=== PATIENT | female | born 1980 | race Caucasian/White ===

== ENCOUNTER 2020-04-16 18:36 | Inpatient (IN) ==
--- NOTE | 2020-04-16 18:38 | Emergency Department Note ---
Impression & Plan Acute renal failure (ARF), Sepsis, Thrombocytopenia, Acute dehydration ED Provider Note NAME: CHRISTOPHER MILLER AGE: 39 SEX: F : 1980 ARRIVES VIA: Ambulance INFORMANT: Patient, ED PROVIDER(S): Jhon Us MD Chief Complaint: Overdose HPI: Patient was seen due to concern for overdose. The patient's mother states that she took an increased amount of her usual Suboxone which per the records note that the patient did fill a 28-day supply on March 26. Unknown as to the total amount. The mother was concerned she had not had improvement in her symptoms and was generally less active than typical and thus EMS was called. The patient reportedly had been somewhat uncooperative at the time. BSG was in the 70s. The patient will intermittently answer questions but occasionally is uncooperative. Patient is not combative at the bedside. Patient denies taking any other medications. History is limited secondary to the intoxication. ROS: Unable to obtain secondary to unwillingness to operate. Past medical history: See below Surgical history: See below Social history: See below Physical Exam: GENERAL: Wearing a mask. NAD, non-toxic. EYE EXAM: Normal conjunctiva. PERRL, no anisocoria and EOM's grossly intact w/o pain. NECK: Supple, no nuchal rigidity, no adenopathy, non-tender. No signs of meningismus. LUNGS: Clear to auscultation. Normal chest wall mechanics. HEART: NSR, no MRG. ABDOMEN: Abdomen soft, non-tender, normo-active bowel sounds, no masses, no rebound or guarding. BACK: No CVA TTP. SKIN: No rashes and small area of bruising over the bilateral anterior knee, no obvious deformity, compartments are soft. 2 areas of nailbed hemorrhage on both index fingers. UPPER EXTREMITIES: Upper extremities are grossly normal. No obvious deformity or TTP elicited on exam. LOWER EXTREMITIES: Grossly normal, no edema. Bruising as noted above with no obvious deformities or leg length discrepancy. Moves bilateral lower extremities without issue. NEURO EXAM: A&O x3, cranial nerves II-XII grossly intact, normal speech, moves all 4 extremities on command w/o issue. Differential diagnoses: Overdose, toxicologic, infection, hypoglycemia, electrolyte abnormalities, cardiac sources, intracerebral event, neurologic, trauma, as well as other pathologies. Course: Patient was seen and evaluated the bedside. Full history physical exam was performed. EKG: Indication: Overdose Sinus tachycardia, rate of 105, normal intervals, normal axis. Imaging Studies: Radiology results as stated below per my review in the radiologist's interpretation: CT head/brain wo con CLINICAL HISTORY: 39 years-old Female with AMS/overdose. Acutely altered mental status with drug overdose TECHNIQUE: Multiple axial CT images of the head were obtained without contrast. A dose lowering technique was utilized adhering to the principles of ALARA. CT DOSE: 647.99 mGy.cm COMPARISON: None. FINDINGS: Motion degraded exam. No acute intracranial hemorrhage, midline shift, intracranial mass, hydrocephalus, territorial ischemia or abnormal extra-axial collection. Prominent perivascular spaces lung the inferior lentiform nuclei/anterior commissure. The calvarium is intact. Minimal mucosal thickening of the left ethmoid air cells. Mastoid air cells are clear. Unremarkable soft tissues. IMPRESSION: Motion degraded exam without acute intracranial abnormality identified. ACT 112: Negative or not required by law. The above report was generated using voice recognition software. It may contain grammatical, syntax or spelling errors. Electronically signed by: Rafat Lombardo M.D. 04/16/2020 7:49 PM Dictated: 04/16/201945 Transcribed: 04/16/201945 ABDOMEN AND PELVIS CT WITHOUT CONTRAST CT DOSE: 608.42 mGy.cm HISTORY: Acute renal failure with overdose. Leukocytosis. WBC 19, ARF TECHNIQUE: Multiaxial CT images of the abdomen and pelvis were performed without contrast. A dose lowering technique was utilized adhering to the principles of ALARA. COMPARISON STUDY: CT abdomen and pelvis 11/25/2007 FINDINGS: Limited exam secondary to positioning. The imaged inferior cardiac chambers are unremarkable. Mild bibasilar groundglass densities. No pneumatosis or pneumoperitoneum. The unenhanced spleen, pancreas and adrenal glands are unremarkable. Mildly contracted gallbladder. Unremarkable liver. Punctate nonobstructing bilateral nephrolithiasis with 3 mm nonobstructing calculus of the inferior pole right kidney. There is a linear 5 mm calcification within the right hemipelvis within the region of the right ureterovesicular junction. Bilateral pelvic basin phlebolith are also noted. No hydronephrosis or hydroureter. Unremarkable urinary bladder and uterus. Tubo-ovarian occlusion devices are noted. Cystic structure of the right adnexum measuring 3.2 cm suggests cyst. No aortic aneurysm or adenopathy. Mild distal esophageal wall thickening with tiny hiatal hernia. There is no bowel obstruction or bowel wall thickening. Noninflamed appendix measures the upper limits of normal at 6 mm, stable from comparison. Unremarkable soft tissues. Bones appear intact. T8 and T9 compression deformities are likely chronic. IMPRESSION: 1. Bilateral nonobstructing nephrolithiasis. There is a linear 5 mm calcification within the right hemipelvis near the ureterovesicular junction which is suggestive of a calculus within the distal ureter. A phlebolith could appear similarly. No associated obstructive uropathy. Correlate with urinalysis. 2. No bowel obstruction or bowel wall thickening. 3. Bibasilar groundglass densities suggest atelectasis versus pneumonitis. 4. 3.2 cm right ovarian cyst. 5. Additional findings as above. ACT 112: Negative or not required by law. The above report was generated using voice recognition software. It may contain grammatical, syntax or spelling errors. Electronically signed by: Rafat Lombardo M.D. 04/16/2020 8:17 PM Dictated: 04/16/202008 Transcribed: 04/16/202008 XR chest 1V portable HISTORY: 39 years-old Female overdose acute drug overdose COMPARISON: Chest radiograph 03/17/2020 TECHNIQUE: Portable AP view of the chest FINDINGS: Cardiomediastinal and hilar silhouettes are within normal limits. No pneumothorax, pleural effusion, airspace consolidation or overt pulmonary edema. Bones of the chest appear grossly intact. IMPRESSION: No acute process. ACT 112: Negative or not required by law. The above report was generated using voice recognition software. It may contain grammatical, syntax or spelling errors. Electronically signed by: Rafat Lombardo M.D. 04/16/2020 8:00 PM Dictated: 04/16/201958Transcribed: 04/16/201958 Cardiac monitoring: An order was placed for continuous cardiac monitoring. The monitor shows a rate of 115 with sinus tachycardia rhythm. MDM: Patient did present with a possible overdose. Blood work was obtained along with a urine drug and tox screen. EKG was obtained the patient was given IV fluids. CT the head is motion degraded but no obvious abnormality. The patient did have a white count of 19 with a hemoglobin of 11. Patient's bicarb is slightly low with acute renal failure but potassium is normal. Patient does have transaminitis. TSH is elevated with normal free T4. The patient salicylate Tylenol and alcohol is negative. CK was added. The patient was ordered calcium given the low calcium and the patient was given IV fluids given the acute renal failure. Chest x-ray is clear. The patient reportedly needed to recollect with a CBC and there is concerned that the patient did have bacteria in her blood sample. Empiric antibiotics were ordered in addition to blood cultures. I did speak with the patient's fa ther who stated that she is seeing very fatigued and that this was the case when he last saw her on Wednesday he stated that she is a recovering recovering drug addict but has not known whether not she has taken something inappropriately or any and illicit substances. He did state that the patient does live with the patient's mother. CT the abdomen pelvis does show nonobstructing stones. Have calcification at the right UVJ. No obstructive uropathy noted. There is no bowel wall thickening. Patient may have some pneumonitis. Right ovarian cyst noted. I did speak with the on-call hospitalist and the patient was admitted to the medicine service. Did convey to the medicine service unsure as to whether or not the patient's nailbed hemorrhages were splinter hemorrhages versus trauma versus IV drug abuse. The patient does not have obvious murmur on exam but given the patient's prior history did state that there is a possibility for endocarditis. White count was 18 with a hemoglobin of 11. Platelet count is 88. Patient salicylate Tylenol and alcohol negative. Covid negative. The p atient's urinalysis does show positive nitrites and leuks. Rest the urine was still pending at the time of the patient had gone upstairs. I did consider septic pyelo however there is no obvious inflammatory kidney change and no signs of obstructive uropathy concerning for obstructing stone. Patient was covered with broad-spectrum antibiotics. Past Med/Surg History Medical History DVT (deep vein thrombosis) in Hypertension Hypothyroidism (acquired) Surgical History History of tubal ligation Social History Smoking Status: Never smoker Tobacco Type: Cigarettes Preferred Language: Uzbek Feels Safe at Home: Yes Allergies Allergies Allergy/AdvReac Type Severity Reaction Status Date / Time No Known Allergies Allergy Unknown Verified 03/17/20 12:54 Home Meds Home Medications Medication Instructions Recorded Confirmed gabapentin 1,200 mg PO BID 03/17/20 03/17/20 levothyroxine 88 mcg PO QAM 03/17/20 03/17/20 lisinopril 40 mg PO QAM 03/17/20 03/17/20 topiramate 0 mg PO BID 03/17/20 03/17/20 trazodone 100 mg PO HS 03/17/20 03/17/20 Previous Rx's Medication Instructions Recorded naloxone [Narcan] 1 spray INTRANASAL ONCE #2 ea 03/17/20 Results & Data (ED) Vital Signs Vital Signs - 24 hr 04/16/20 18:50 04/16/20 19:56 Temperature 36.3 C L Temperature Source Oral Pulse Rate 120 H Pulse Rate [Right Finger] 99 H Respiratory Rate 18 16 Respiratory Effort / Characteristics Non-Labored Respiratory Depth Normal Respiratory Pattern Regular Blood Pressure 95/42 L Blood Pressure [Right Arm] 88/53 L Blood Pressure Mean 59 Blood Pressure Mean [Right Arm] 64 Pulse Oximetry 100 96 Oxygen Delivery Method Room Air Room Air Sepsis Recent Fever Within 48 Hours No Sepsis New/Unexplained Change in Mental Status N/A Sepsis Action Taken by Nursing No Action Required Home Medications Current Medication List: was personally reviewed by me Laboratory Data Attestation: I reviewed the patient's lab results. Result diagrams: 04/16/20 20:54 04/16/20 20:54 Lab Results 04/16/20 04/16/20 04/16/20 Range/Units 18:47 18:47 18:47 WBC Cancelled RBC Cancelled Hgb Cancelled Hct Cancelled MCV Cancelled MCH Cancelled MCHC Cancelled RDW Std Deviation Cancelled RDW Coeff of Lesly Cancelled Plt Count Cancelled MPV Cancelled Immature Gran % (Auto) Cancelled Neut % (Auto) Cancelled Lymph % (Auto) Cancelled Placer % (Auto) Cancelled Eos % (Auto) Cancelled Baso % (Auto) Cancelled Neut # (Auto) Cancelled Lymph # (Auto) Cancelled Placer # (Auto) Cancelled Eos # (Auto) Cancelled Baso # (Auto) Cancelled Immature Gran # (Auto) Cancelled Absolute Nucleated RBC Cancelled Nucleated RBC % (auto) Cancelled Neutrophils % (Manual) Cancelled Band Neutrophils % Cancelled Lymphocytes % (Manual) Cancelled Prolymphocyte % Cancelled Reactive Lymphs % (Man) Cancelled Monocytes % (Manual) Cancelled Eosinophils % (Manual) Cancelled Basophils % (Manual) Cancelled Metamyelocytes % (Man) Cancelled Myelocytes % (Man) Cancelled Promyelocytes % (Man) Cancelled Blast Cells % (Manual) Cancelled Plasma Cell % (Manual) Cancelled Other Cells % Cancelled Nucleated RBC % Cancelled Neutrophils # (Manual) Cancelled Band Neutrophils # Cancelled Total Absolute Neuts Cancelled Lymphocytes # (Manual) Cancelled Prolymphocyte # Cancelled Reactive Lymphs # Cancelled Total Abs Lymphocytes Cancelled Monocytes # (Manual) Cancelled Eosinophils # (Manual) Cancelled Basophils # (Manual) Cancelled Metamyelocytes # (Man) Cancelled Myelocytes # (Manual) Cancelled Promyelocytes # (Man) Cancelled Blast Cells # (Man) Cancelled Plasma Cell # (Manual) Cancelled Other Cells # Cancelled Nucleated RBCs # (Man) Cancelled Hypersegmented Neuts Cancelled Hyposegmented Neuts Cancelled Hypogranular Neuts Cancelled Large Granular Lymphs Cancelled # Lrg Granular Lymphs Cancelled Hairy Cells Cancelled Smudge Cells Cancelled Toxic Granulation Cancelled Toxic Vacuolation Cancelled Dohle Bodies Cancelled [place] Rods Cancelled Platelet Estimate Cancelled Hypogranular Platelets Cancelled Clumped Platelets Cancelled Giant Platelets Cancelled Platelet Satelliting Cancelled RBC Morphology Cancelled Polychromasia Cancelled Hypochromasia Cancelled Poikilocytosis Cancelled Basophilic Stippling Cancelled Anisocytosis Cancelled Microcytosis Cancelled Macrocytosis Cancelled Spherocytes Cancelled Pappenheimer Bodies Cancelled Sickle Cells Cancelled Target Cells Cancelled Tear Drop Cells Cancelled Ovalocytes Cancelled Stomatocytes Cancelled [place] Bodies Cancelled Echinocytes Cancelled Acanthocytes (Spur) Cancelled Rouleaux Cancelled RBC Agglutinates Cancelled Schistocytes Cancelled RBC Morph Comment Cancelled Sezary Cell Cancelled Sodium 138 (136-145) mmol/L Potassium 3.8 (3.5-5.1) mmol/L Chloride 108 H (98-107) mmol/L Carbon Dioxide 19 L (21-32) mmol/L Anion Gap 11.0 (3-11) BUN 87 H (7-18) mg/dl Creatinine 4.90 H* (0.6-1.2) mg/dl Est Cr Clr Drug Dosing 16.9 ml/min Est GFR ( Amer) 12.1 Est GFR (Non-Af Amer) 10.5 BUN/Creatinine Ratio 17.7 (10-20) Glucose 71 (70-99) mg/dl Lactate (0.4-2.0) mmol/L Calcium 7.5 L (8.5-10.1) mg/dl Magnesium 1.9 (1.8-2.4) mg/dl Total Bilirubin 1.1 H (0.2-1) mg/dl AST 96 H (15-37) U/L ALT 150 H (12-78) U/L Alkaline Phosphatase 137 H (45-117) U/L Total Creatine Kinase 563 H (26-192) U/L Total Protein 5.4 L (6.4-8.2) gm/dl Albumin 2.4 L (3.4-5.0) gm/dl Globulin 3.0 (2.5-4.0) gm/dl Albumin/Globulin Ratio 0.8 L (0.9-2) TSH 16.800 H (0.300-4.500) uIu/ml Free T4 1.21 (0.8-1.6) ng/dl HCG, Qual (Negative) Salicylates < 1.7 L (2.8-20) mg/dl Acetaminophen 2 L (10-30) ug/ml Ethyl Alcohol mg/dL (0-3) mg/dl COVID-19 Eval Order SARS-CoV-2, RNA, NAAT (NEGATIVE) 04/16/20 04/16/20 04/16/20 Range/Units 18:47 18:58 19:52 WBC RBC Hgb Hct MCV MCH MCHC RDW Std Deviation RDW Coeff of Lesly Plt Count MPV Immature Gran % (Auto) Neut % (Auto) Lymph % (Auto) Placer % (Auto) Eos % (Auto) Baso % (Auto) Neut # (Auto) Lymph # (Auto) Placer # (Auto) Eos # (Auto) Baso # (Auto) Immature Gran # (Auto) Absolute Nucleated RBC Nucleated RBC % (auto) Neutrophils % (Manual) Band Neutrophils % Lymphocytes % (Manual) Prolymphocyte % Reactive Lymphs % (Man) Monocytes % (Manual) Eosinophils % (Manual) Basophils % (Manual) Metamyelocytes % (Man) Myelocytes % (Man) Promyelocytes % (Man) Blast Cells % (Manual) Plasma Cell % (Manual) Other Cells % Nucleated RBC % Neutrophils # (Manual) Band Neutrophils # Total Absolute Neuts Lymphocytes # (Manual) Prolymphocyte # Reactive Lymphs # Total Abs Lymphocytes Monocytes # (Manual) Eosinophils # (Manual) Basophils # (Manual) Metamyelocytes # (Man) Myelocytes # (Manual) Promyelocytes # (Man) Blast Cells # (Man) Plasma Cell # (Manual) Other Cells # Nucleated RBCs # (Man) Hypersegmented Neuts Hyposegmented Neuts Hypogranular Neuts Large Granular Lymphs # Lrg Granular Lymphs Hairy Cells Smudge Cells Toxic Granulation Toxic Vacuolation Dohle Bodies [place] Platelet Estimate Hypogranular Platelets Clumped Platelets Giant Platelets Platelet Satelliting RBC Morphology Polychromasia Hypochromasia Poikilocytosis Basophilic Stippling Anisocytosis Microcytosis Macrocytosis Spherocytes Pappenheimer Bodies Sickle Cells Target Cells Tear Drop Cells Ovalocytes Stomatocytes [place] Bodies Echinocytes Acanthocytes (Spur) Rouleaux RBC Agglutinates Schistocytes RBC Morph Comment Sezary Cell Sodium (136-145) mmol/L Potassium (3.5-5.1) mmol/L Chloride (98-107) mmol/L Carbon Dioxide (21-32) mmol/L Anion Gap (3-11) BUN (7-18) mg/dl Creatinine (0.6-1.2) mg/dl Est Cr Clr Drug Dosing ml/min Est GFR ( Amer) Est GFR (Non-Af Amer) BUN/Creatinine Ratio (10-20) Glucose (70-99) mg/dl Lactate 2.5 H* (0.4-2.0) mmol/L Calcium (8.5-10.1) mg/dl Magnesium (1.8-2.4) mg/dl Total Bilirubin (0.2-1) mg/dl AST (15-37) U/L ALT (12-78) U/L Alkaline Phosphatase (45-117) U/L Total Creatine Kinase (26-192) U/L Total Protein (6.4-8.2) gm/dl Albumin (3.4-5.0) gm/dl Globulin (2.5-4.0) gm/dl Albumin/Globulin Ratio (0.9-2) TSH (0.300-4.500) uIu/ml Free T4 (0.8-1.6) ng/dl HCG, Qual Negative (Negative) Salicylates (2.8-20) mg/dl Acetaminophen (10-30) ug/ml Ethyl Alcohol mg/dL < 3.0 (0-3) mg/dl COVID-19 Eval Order SARS-CoV-2, RNA, NAAT (NEGATIVE) 04/16/20 04/16/20 04/16/20 Range/Units 20:09 20:09 20:54 WBC 18.13 H RBC 3.76 L Hgb 11.0 L Hct 32.0 L MCV 85.1 MCH 29.3 MCHC 34.4 RDW Std Deviation 46.9 H RDW Coeff of Lesly 14.9 H Plt Count 88 L MPV 11.5 H Immature Gran % (Auto) 0.3 Neut % (Auto) 89.9 Lymph % (Auto) 7.6 Placer % (Auto) 1.9 Eos % (Auto) 0.2 Baso % (Auto) 0.1 Neut # (Auto) 16.30 H Lymph # (Auto) 1.37 Placer # (Auto) 0.34 Eos # (Auto) 0.04 Baso # (Auto) 0.02 Immature Gran # (Auto) 0.06 H Absolute Nucleated RBC 0.00 Nucleated RBC % (auto) 0.0 Neutrophils % (Manual) Band Neutrophils % Lymphocytes % (Manual) Prolymphocyte % Reactive Lymphs % (Man) Monocytes % (Manual) Eosinophils % (Manual) Basophils % (Manual) Metamyelocytes % (Man) Myelocytes % (Man) Promyelocytes % (Man) Blast Cells % (Manual) Plasma Cell % (Manual) Other Cells % Nucleated RBC % Neutrophils # (Manual) Band Neutrophils # Total Absolute Neuts Lymphocytes # (Manual) Prolymphocyte # Reactive Lymphs # Total Abs Lymphocytes Monocytes # (Manual) Eosinophils # (Manual) Basophils # (Manual) Metamyelocytes # (Man) Myelocytes # (Manual) Promyelocytes # (Man) Blast Cells # (Man) Plasma Cell # (Manual) Other Cells # Nucleated RBCs # (Man) Hypersegmented Neuts Hyposegmented Neuts Hypogranular Neuts Large Granular Lymphs # Lrg Granular Lymphs Hairy Cells Smudge Cells Toxic Granulation Toxic Vacuolation Dohle Bodies [place] Platelet Estimate Decreased L Hypogranular Platelets Clumped Platelets Giant Platelets Platelet Satelliting RBC Morphology Polychromasia 1+ Hypochromasia Poikilocytosis Basophilic Stippling Anisocytosis Microcytosis Macrocytosis Spherocytes Pappenheimer Bodies Sickle Cells Target Cells Tear Drop Cells Ovalocytes Stomatocytes [place] Bodies Echinocytes 1+ Acanthocytes (Spur) Rouleaux RBC Agglutinates Schistocytes RBC Morph Comment Sezary Cell Sodium (136-145) mmol/L Potassium (3.5-5.1) mmol/L Chloride (98-107) mmol/L Carbon Dioxide (21-32) mmol/L Anion Gap (3-11) BUN (7-18) mg/dl Creatinine (0.6-1.2) mg/dl Est Cr Clr Drug Dosing ml/min Est GFR ( Amer) Est GFR (Non-Af Amer) BUN/Creatinine Ratio (10-20) Glucose (70-99) mg/dl Lactate (0.4-2.0) mmol/L Calcium (8.5-10.1) mg/dl Magnesium (1.8-2.4) mg/dl Total Bilirubin (0.2-1) mg/dl AST (15-37) U/L ALT (12-78) U/L Alkaline Phosphatase (45-117) U/L Total Creatine Kinase (26-192) U/L Total Protein (6.4-8.2) gm/dl Albumin (3.4-5.0) gm/dl Globulin (2.5-4.0) gm/dl Albumin/Globulin Ratio (0.9-2) TSH (0.300-4.500) uIu/ml Free T4 (0.8-1.6) ng/dl HCG, Qual (Negative) Salicylates (2.8-20) mg/dl Acetaminophen (10-30) ug/ml Ethyl Alcohol mg/dL (0-3) mg/dl COVID-19 Eval [facility] SARS-CoV-2, RNA, NAAT NEGATIVE (NEGATIVE) 04/16/20 Range/Units 20:54 WBC RBC Hgb Hct MCV MCH MCHC RDW Std Deviation RDW Coeff of Lesly Plt Count MPV Immature Gran % (Auto) Neut % (Auto) Lymph % (Auto) Placer % (Auto) Eos % (Auto) Baso % (Auto) Neut # (Auto) Lymph # (Auto) Placer # (Auto) Eos # (Auto) Baso # (Auto) Immature Gran # (Auto) Absolute Nucleated RBC Nucleated RBC % (auto) Neutrophils % (Manual) Band Neutrophils % Lymphocytes % (Manual) Prolymphocyte % Reactive Lymphs % (Man) Monocytes % (Manual) Eosinophils % (Manual) Basophils % (Manual) Metamyelocytes % (Man) Myelocytes % (Man) Promyelocytes % (Man) Blast Cells % (Manual) Plasma Cell % (Manual) Other Cells % Nucleated RBC % Neutrophils # (Manual) Band Neutrophils # Total Absolute Neuts Lymphocytes # (Manual) Prolymphocyte # Reactive Lymphs # Total Abs Lymphocytes Monocytes # (Manual) Eosinophils # (Manual) Basophils # (Manual) Metamyelocytes # (Man) Myelocytes # (Manual) Promyelocytes # (Man) Blast Cells # (Man) Plasma Cell # (Manual) Other Cells # Nucleated RBCs # (Man) Hypersegmented Neuts Hyposegmented Neuts Hypogranular Neuts Large Granular Lymphs # Lrg Granular Lymphs Hairy Cells Smudge Cells Toxic Granulation Toxic Vacuolation Dohle Bodies [place] Platelet Estimate Hypogranular Platelets Clumped Platelets Giant Platelets Platelet Satelliting RBC Morphology Polychromasia Hypochromasia Poikilocytosis Basophilic Stippling Anisocytosis Microcytosis Macrocytosis Spherocytes Pappenheimer Bodies Sickle Cells Target Cells Tear Drop Cells Ovalocytes Stomatocytes [place] Bodies Echinocytes Acanthocytes (Spur) Rouleaux RBC Agglutinates Schistocytes RBC Morph Comment Sezary Cell Sodium 140 (136-145) mmol/L Potassium 3.8 (3.5-5.1) mmol/L Chloride 110 H (98-107) mmol/L Carbon Dioxide 20 L (21-32) mmol/L Anion Gap 10.0 (3-11) BUN 84 H (7-18) mg/dl Creatinine 4.64 H* (0.6-1.2) mg/dl Est Cr Clr Drug Dosing 17.9 ml/min Est GFR ( Amer) 12.9 Est GFR (Non-Af Amer) 11.2 BUN/Creatinine Ratio 18.0 (10-20) Glucose 59 L (70-99) mg/dl Lactate (0.4-2.0) mmol/L Calcium 7.7 L (8.5-10.1) mg/dl Magnesium (1.8-2.4) mg/dl Total Bilirubin (0.2-1) mg/dl AST (15-37) U/L ALT (12-78) U/L Alkaline Phosphatase (45-117) U/L Total Creatine Kinase 533 H (26-192) U/L Total Protein (6.4-8.2) gm/dl Albumin (3.4-5.0) gm/dl Globulin (2.5-4.0) gm/dl Albumin/Globulin Ratio (0.9-2) TSH (0.300-4.500) uIu/ml Free T4 (0.8-1.6) ng/dl HCG, Qual (Negative) Salicylates (2.8-20) mg/dl Acetaminophen (10-30) ug/ml Ethyl Alcohol mg/dL (0-3) mg/dl COVID-19 Eval Order SARS-CoV-2, RNA, NAAT (NEGATIVE) Administered Medications Discontinued Medications Calcium Gluconate (Calcium Gluconate 10% 10 Ml Vial) 2,000 mg IV NOW STA Stop: 04/16/20 19:36 Last Admin: 04/16/20 19:57 Dose: 2,000 mg Documented by: [id number] Sodium Chloride (Nss 1000ml) 1,000 mls @ 999 mls/hr IV .Q1H1M RICK Stop: 04/16/20 20:00 Last Infusion: 04/16/20 19:59 Dose: 0 mls/hr Documented by: [id number] Admin: 04/16/20 19:07 Dose: 999 mls/hr Documented by: [id number] Lorazepam (Ativan) 0.5 mg in 1 mls @ 0.5 mls/min IV UD PRN PRN Reason: Agitation Stop: 05/16/20 18:49 Last Admin: 04/16/20 21:14 Dose: 0.5 mls/min Documented by: [id number] Admin: 04/16/20 20:27 Dose: 0.5 mls/min Documented by: [id number] Admin: 04/16/20 19:59 Dose: 0.5 mls/min Documented by: [id number] Admin: 04/16/20 19:07 Dose: 0.5 mls/min Documented by: [id number] Sodium Chloride (Nss 1000ml) 1,000 mls @ 999 mls/hr IV .Q1H1M ONE Stop: 04/16/20 20:38 Last Infusion: 04/16/20 20:46 Dose: 0 mls/hr Documented by: [id number] Admin: 04/16/20 19:58 Dose: 999 mls/hr Documented by: [id number] Calcium Gluconate 2,000 mg/ (Sodium Chloride) 70 mls @ 280 mls/hr IV NOW ONE Stop: 04/16/20 20:14 Last Admin: 04/16/20 19:59 Dose: Not Given Documented by: [id number] Piperacillin Sod/Tazobactam Sod (Zosyn) 4.5 gm in 120 mls @ 240 mls/hr IV NOW ONE Stop: 04/16/20 20:40 Last Admin: 04/16/20 22:15 Dose: 240 mls/hr Documented by: [id number] Discharge Plan Visit Data Chief Complaint: Altered Mental Status Stated Complaint: ALTERED MENTAL STATUS/POSSIBLE OVERDOSE ED Provider: Jhon Us Discharge Problem: Acute renal failure (ARF), Sepsis, Thrombocytopenia, Acute dehydration Discharge Instructions Interventions: ED Discharge Assessment Last Done: 04/16/20 22:15 Discharge Problem: Acute renal failure (ARF) Qualifiers: Acute renal failure type: unspecified Qualified Code(s): N17.9 - Acute kidney failure, unspecified Sepsis Qualifiers: Sepsis type: sepsis due to unspecified organism Sepsis acute organ dysfunction status: unspecified Qualified Code(s): A41.9 - Sepsis, unspecified organism
[2020-04-16] MEDS ORDERED: SODIUM CHLORIDE 0.9% 1000ML 1,000 ML IV SCH (19:00)
[2020-04-16] MEDS: LORazepam 0.5 MG/1 ML VIAL IV PRN ×4 (19:07→21:14)
[2020-04-16 19:20] LABS: Pregnancy Test, Serum Negative (Negative)
[2020-04-16 19:24] LABS: Acetaminophen 2 ug/ml (10-30); Salicylate < 1.7 mg/dl (2.8-20)
[2020-04-16 19:31] LABS: Albumin Globulin Ratio 0.8 (0.9-2); Albumin Level 2.4 gm/dl (3.4-5.0); BUN Creatinine Ratio 17.7 (10-20); Bilirubin,Total 1.1 mg/dl (0.2-1); Calcium 7.5 mg/dl (8.5-10.1); Creatinine Clr Calc Pharmacy 16.9 ml/min; Est GFR (African American) 12.1; Est GFR (Non-African American) 10.5; Magnesium 1.9 mg/dl (1.8-2.4); Potassium 3.8 mmol/L (3.5-5.1); Thyroid Stimulating Hormone 16.8 uIu/ml (0.300-4.500); Total Protein 5.4 gm/dl (6.4-8.2)
[2020-04-16] MEDS ORDERED: CALCIUM GLUCONATE 10% 10 ML VIAL IV STA (19:35)
[2020-04-16] MEDS ORDERED: SODIUM CHLORIDE 0.9% 1000ML 1,000 ML IV ONE (19:38)
--- NOTE | 2020-04-16 19:50 | CT Scan Report ---
CT head/brain wo con CLINICAL HISTORY: 39 years-old Female with AMS/overdose. Acutely altered mental status with drug ove rdose TECHNIQUE: Multiple axial CT images of the head were obtained without contrast. A dose lowering tech nique was utilized adhering to the principles of ALARA. CT DOSE: 647.99 mGy.cm COMPARISON: None. FINDINGS: Motion degraded exam. No acute intracranial hemorrhage, midline shift, intracranial mass, hydrocephal us, territorial ischemia or abnormal extra-axial collection. Prominent perivascular spaces lung the i nferior lentiform nuclei/anterior commissure. The calvarium is intact. Minimal mucosal thickening of the left ethmoid air cells. Mastoid air cells are clear. Unremarkable soft tissues. IMPRESSION: Motion degraded exam without acute intracranial abnormality identified. ACT 112: Negative or not required by law. The above report was generated using voice recognition software. It may contain grammatical, syntax o r spelling errors. Electronically signed by: Rafat Lombardo M.D. 04/16/2020 7:49 PM
[2020-04-16 19:51] LABS: T4 Free Thyroxine 1.21 ng/dl (0.8-1.6)
[2020-04-16] MEDS ORDERED: CALCIUM GLUCONATE 10% 2,000 MG in SODIUM CHLORIDE 0.9% 50 ML IV ONE (20:00)
--- NOTE | 2020-04-16 20:01 | XRay Report ---
XR chest 1V portable HISTORY: 39 years-old Female overdose acute drug overdose COMPARISON: Chest radiograph 03/17/2020 TECHNIQUE: Portable AP view of the chest FINDINGS: Cardiomediastinal and hilar silhouettes are within normal limits. No pneumothorax, pleural effusion, airspace consolidation or overt pulmonary edema. Bones of the chest appear grossly intact. IMPRESSION: No acute process. ACT 112: Negative or not required by law. The above report was generated using voice recognition software. It may contain grammatical, syntax o r spelling errors. Electronically signed by: Rafat Lombardo M.D. 04/16/2020 8:00 PM
[2020-04-16] MEDS ORDERED: PIPERACILL/TAZOBAC CONSULT ACTIVE PRN ×2 (20:11→22:38)
[2020-04-16] MEDS ORDERED: VANCOMYCIN HCL 2,000 MG in SODIUM CHLORIDE 0.9% 500 ML IV ONE (20:11)
[2020-04-16] MEDS ORDERED: VANCOMYCIN CONSULT ACTIVE PRN (20:11)
[2020-04-16] MEDS ORDERED: PIPERACILLIN/TAZOBACTAM 4.5 GM/120 ML BAG IV ONE (20:11)
--- NOTE | 2020-04-16 20:19 | CT Scan Report ---
ABDOMEN AND PELVIS CT WITHOUT CONTRAST CT DOSE: 608.42 mGy.cm HISTORY: Acute renal failure with overdose. Leukocytosis. WBC 19, ARF TECHNIQUE: Multiaxial CT images of the abdomen and pelvis were performed without contrast. A dose lo wering technique was utilized adhering to the principles of ALARA. COMPARISON STUDY: CT abdomen and pelvis 11/25/2007 FINDINGS: Limited exam secondary to positioning. The imaged inferior cardiac chambers are unremarkable. Mild bibasilar groundglass densities. No pneum atosis or pneumoperitoneum. The unenhanced spleen, pancreas and adrenal glands are unremarkable. Mild ly contracted gallbladder. Unremarkable liver. Punctate nonobstructing bilateral nephrolithiasis with 3 mm nonobstructing calculus of the inferior p ole right kidney. There is a linear 5 mm calcification within the right hemipelvis within the region of the right ureterovesicular junction. Bilateral pelvic basin phlebolith are also noted. No hydronep hrosis or hydroureter. Unremarkable urinary bladder and uterus. Tubo-ovarian occlusion devices are no cristy. Cystic structure of the right adnexum measuring 3.2 cm suggests cyst. No aortic aneurysm or nir opathy. Mild distal esophageal wall thickening with tiny hiatal hernia. There is no bowel obstruction or ирина l wall thickening. Noninflamed appendix measures the upper limits of normal at 6 mm, stable from comp arison. Unremarkable soft tissues. Bones appear intact. T8 and T9 compression deformities are likely chronic. IMPRESSION: 1. Bilateral nonobstructing nephrolithiasis. There is a linear 5 mm calcification within the right he mipelvis near the ureterovesicular junction which is suggestive of a calculus within the distal urete r. A phlebolith could appear similarly. No associated obstructive uropathy. Correlate with urinalysis . 2. No bowel obstruction or bowel wall thickening. 3. Bibasilar groundglass densities suggest atelectasis versus pneumonitis. 4. 3.2 cm right ovarian cyst. 5. Additional findings as above. ACT 112: Negative or not required by law. The above report was generated using voice recognition software. It may contain grammatical, syntax o r spelling errors. Electronically signed by: Rafat Lombardo M.D. 04/16/2020 8:17 PM
[2020-04-16 21:07] LABS: Mean Corpuscular Hemoglobin 29.3 pg (25-34); Mean Corpuscular Hgb Conc 34.4 g/dL (32-36); Mean Corpuscular Volume 85.1 fL (80-100); RDW Coefficient of Variation 14.9 % (11.5-14.5); RDW Standard Deviation 46.9 fL (36.4-46.3); Red Blood Count 3.76 M/uL (4.2-5.4); White Blood Count 18.13 K/uL (4.8-10.8)
[2020-04-16 21:35] LABS: Calcium 7.7 mg/dl (8.5-10.1); Creatinine Clr Calc Pharmacy 17.9 ml/min; Est GFR (African American) 12.9; Est GFR (Non-African American) 11.2; Potassium 3.8 mmol/L (3.5-5.1)
[2020-04-16 21:42] LABS: Mean Platelet Volume 11.5 fL (7.4-10.4); Platelet Count 88 K/uL (130-400)
--- NOTE | 2020-04-16 21:42 | History & Physical Report ---
Date of Service April 16, 2020 Assessment & Plan (1) Encephalopathy acute: Patient with history of IV drug abuse and Suboxone for home use. Patient arrived via EMS ? combative - Will continue with supportive care and hydration at this time, while the remaining urine toxicology is pending - Patient has no gap - TSH is elevated with normal T4 - CT head negative for acute process - Broad spectrum antibiotics for concern for sepsis unknown source - Frequent neurological checks - Clear mentation and psych consult (2) Sepsis: Unknown source, cover broad spectrum to include atypical and endocarditis - Leukocytosis with NLR 10:1, thrombocytopenic - metabolic acidosis with lactate and estefany - wean down coverage as able - blood cultures pending - urine culture and toxicology pending (3) Elevated CK: CK 533 reported as not being up and active as usual per family report to ED - suspect ed from comatose state as above - resuscitate with crystalloid to maintain adequate UO - follow with next blood draw (4) ESTEFANY (acute kidney injury): Non obstructive stone ntoed on CT of abdomen - Stage III ESTEFANY with CLINICAL COUNSELOR 4 - Continue to resuscitate with crytstalloid - no evidence of hydronephrosis - avoid nephrotoxic medications and limit exposure to nephrotoxic (5) Nephrolithiasis: As above, non obstructive, no abscess - antibiotics and follow with resuscitation (6) Drug abuse and dependence: Pending urine toxicology report. - toxicology consult if needed - (7) Thrombocytopenia: Peripheral smear pending endocarditis versus sepsis of other origin versus vasculitis or clot History of Present Illness Primary Care Provider: NO PCP 39 YOF with history of IV drug use and prescribed narcan as outpatient use. The patient is brought to the ER today by EMS after concern by her mother of taking increase dose of her suboxone ? total amount. Patient was reportedly non-cooperative and disoriented. On evaluation in the ED the patient is disoriented and speech is inappropriate and not accurate. Patient is unaware where she is or how she got here. In the ER patient has received 2liters 0.9% saline, broad spectrum antibiotics, CT scan of head and abdomen, lorazepam and calcium gluconate. Related to pateints mentation and overall ill appearance will admit to telemetry and cover for endocarditis. Allergies Allergy/AdvReac Type Severity Reaction Status Date / Time No Known Allergies Allergy Unknown Verified 03/17/20 12:54 Home Medications Medication Instructions Recorded Confirmed Type gabapentin 1,200 mg PO BID 12/27/20 12/27/20 History levothyroxine 88 mcg PO QAM 03/17/20 03/17/20 History lisinopril 40 mg PO QAM 03/17/20 03/17/20 History naloxone [Narcan] 1 spray INTRANASAL ONCE #2 ea 03/17/20 Rx topiramate 0 mg PO BID 03/17/20 03/17/20 History trazodone 100 mg PO HS 03/17/20 03/17/20 History Past Med/Surg History Medical History DVT (deep vein thrombosis) in Hypertension Hypothyroidism (acquired) Surgical History History of tubal ligation Social History Smoking Status: Unknown if ever smoked Tobacco Type: Cigarettes Hx Substance Use: Yes Preferred Language: Irish Communication Ability: Impaired [facility] Required: No Beliefs That Will Affect Care: None Current Living Situation: Parent Feels Safe at Home: Yes Assistive Devices: None Review of Systems Review of Systems: Review of systems unable to be completed secondary to degree of intoxication or alteration in mentation. Physical Exam Physical Exam: PHYSICAL EXAM: General: Lethargic Head: Normocephalic, atraumatic ENT: PERRL, EOMI, mucous membranes moist Neuro: AAO x 1(person) speech slurred and inappropriate, strength intact bilaterally 5/5, sensation intact, full ROM of neck, unable to perform coordination as patient can't follow commands. Chest: equal rise and fall of the chest, no accessory muscle use, no heaves or thirlls, scattered crackles in bases on auscultation, on room air, Cardiac: Regular rate and rhythm, telelmetry reviewed, skin warm dry, cap refill <3 seconds, peripheral pusles +2 no JVD, no murmur, GI: NABS x 4 quadrants, soft, nontender to palpation, no rebound, guarding or tenderness : Spontaneously voiding, no pain, no CVA tenderness, Extremities: echymostic areas with surrounding areas of purpura to lower extremities, no painful lesions, rubor color to bialteral hands and arms. brusing and swelling noted to lateral left malleolus. Psych: Normal mood and affect cits Skin: no rash or erythema Results & Data Results & Data ([facility]) Vital Signs (Past 12 Hours) Vital Signs Temp Pulse Pulse Resp BP BP Pulse Ox 04/16/20 19:56 99 H 16 88/53 L 96 04/16/20 18:50 36.3 C L 120 H 18 95/42 L 100 Laboratory Results Abnormal lab results 04/16/20 04/16/20 04/16/20 Range/Units 18:47 18:47 19:52 WBC (4.8-10.8) K/uL RBC (4.2-5.4) M/uL Hgb (12.0-16.0) g/dL Hct (37-47) % RDW Std Deviation (36.4-46.3) fL RDW Coeff of Lesly (11.5-14.5) % Plt Count (130-400) K/uL MPV (7.4-10.4) fL Neut # (Auto) (1.4-6.5) K/uL Immature Gran # (Auto) (0.00-0.02) K/uL Platelet Estimate (Normal) Chloride 108 H (98-107) mmol/L Carbon Dioxide 19 L (21-32) mmol/L BUN 87 H (7-18) mg/dl Creatinine 4.90 H* (0.6-1.2) mg/dl Glucose (70-99) mg/dl Lactate 2.5 H* (0.4-2.0) mmol/L Calcium 7.5 L (8.5-10.1) mg/dl Total Bilirubin 1.1 H (0.2-1) mg/dl AST 96 H (15-37) U/L ALT 150 H (12-78) U/L Alkaline Phosphatase 137 H (45-117) U/L Total Creatine Kinase 563 H (26-192) U/L Total Protein 5.4 L (6.4-8.2) gm/dl Albumin 2.4 L (3.4-5.0) gm/dl Albumin/Globulin Ratio 0.8 L (0.9-2) TSH 16.800 H (0.300-4.500) uIu/ml Salicylates < 1.7 L (2.8-20) mg/dl Acetaminophen 2 L (10-30) ug/ml 04/16/20 04/16/20 Range/Units 20:54 20:54 WBC 18.13 H (4.8-10.8) K/uL RBC 3.76 L (4.2-5.4) M/uL Hgb 11.0 L (12.0-16.0) g/dL Hct 32.0 L (37-47) % RDW Std Deviation 46.9 H (36.4-46.3) fL RDW Coeff of Lesly 14.9 H (11.5-14.5) % Plt Count 88 L (130-400) K/uL MPV 11.5 H (7.4-10.4) fL Neut # (Auto) 16.30 H (1.4-6.5) K/uL Immature Gran # (Auto) 0.06 H (0.00-0.02) K/uL Platelet Estimate Decreased L (Normal) Chloride 110 H (98-107) mmol/L Carbon Dioxide 20 L (21-32) mmol/L BUN 84 H (7-18) mg/dl Creatinine 4.64 H* (0.6-1.2) mg/dl Glucose 59 L (70-99) mg/dl Lactate (0.4-2.0) mmol/L Calcium 7.7 L (8.5-10.1) mg/dl Total Bilirubin (0.2-1) mg/dl AST (15-37) U/L ALT (12-78) U/L Alkaline Phosphatase (45-117) U/L Total Creatine Kinase 533 H (26-192) U/L Total Protein (6.4-8.2) gm/dl Albumin (3.4-5.0) gm/dl Albumin/Globulin Ratio (0.9-2) TSH (0.300-4.500) uIu/ml Salicylates (2.8-20) mg/dl Acetaminophen (10-30) ug/ml Diagnostic Findings XR chest 1V portable HISTORY: 39 years-old Female overdose acute drug overdose COMPARISON: Chest radiograph 03/17/2020 TECHNIQUE: Portable AP view of the chest FINDINGS: Cardiomediastinal and hilar silhouettes are within normal limits. No pneumothorax, pleural effusion, airspace consolidation or overt pulmonary edema. Bones of the chest appear grossly intact. IMPRESSION: No acute process. ABDOMEN AND PELVIS CT WITHOUT CONTRAST CT DOSE: 608.42 mGy.cm HISTORY: Acute renal failure with overdose. Leukocytosis. WBC 19, ARF TECHNIQUE: Multiaxial CT images of the abdomen and pelvis were performed without contrast. A dose lowering technique was utilized adhering to the principles of ALARA. COMPARISON STUDY: CT abdomen and pelvis 11/25/2007 FINDINGS: Limited exam secondary to positioning. The imaged inferior cardiac chambers are unremarkable. Mild bibasilar groundglass densities. No pneumatosis or pneumoperitoneum. The unenhanced spleen, pancreas and adrenal glands are unremarkable. Mildly contracted gallbladder. Unremarkable liver. Punctate nonobstructing bilateral nephrolithiasis with 3 mm nonobstructing calcu glynn of the inferior pole right kidney. There is a linear 5 mm calcification within the right hemipelvis within the region of the right ureterovesicular junction. Bilateral pelvic basin phlebolith are also noted. No hydronephrosis or hydroureter. Unremarkable urinary bladder and uterus. Tubo-ovarian occlusion devices are noted. Cystic structure of the right adnexum measuring 3.2 cm suggests cyst. No aortic aneurysm or adenopathy. Mild distal esophageal wall thickening with tiny hiatal hernia. There is no bowel obstruction or bowel wall thickening. Noninflamed appendix measures the upper limits of normal at 6 mm, stable from comparison. Unremarkable soft tissues. Bones appear intact. T8 and T9 compression deformities are likely chronic. IMPRESSION: 1. Bilateral nonobstructing nephrolithiasis. There is a linear 5 mm calcification within the right hemipelvis near the ureterovesicular junction which is suggestive of a calculus within the distal ureter. A phlebolith could appear similarly. No associated obstructive uropathy. Correlate with urinalysis. 2. No bowel obstruction or bowel wall thickening. 3. Bibasilar groundglass densities suggest atelectasis versus pneumonitis. 4. 3.2 cm right ovarian cyst. 5. Additional findings as above. Ankle Xray- Pending Medications Administered Lorazepam (Ativan) 0.5 mg in 1 mls @ 0.5 mls/min IV UD PRN PRN Reason: Agitation Stop: 05/16/20 18:49 Last Admin: 04/16/20 21:14 Dose: 0.5 mls/min Documented by: [id number] Admin: 04/16/20 20:27 Dose: 0.5 mls/min Documented by: [id number] Admin: 04/16/20 19:59 Dose: 0.5 mls/min Documented by: [id number] Admin: 04/16/20 19:07 Dose: 0.5 mls/min Documented by: [id number] Discontinued Medications Calcium Gluconate (Calcium Gluconate 10% 10 Ml Vial) 2,000 mg IV NOW STA Stop: 04/16/20 19:36 Last Admin: 04/16/20 19:57 Dose: 2,000 mg Documented by: [id number] Sodium Chloride (Nss 1000ml) 1,000 mls @ 999 mls/hr IV .Q1H1M RICK Stop: 04/16/20 20:00 Last Infusion: 04/16/20 19:59 Dose: 0 mls/hr Documented by: [id number] Admin: 04/16/20 19:07 Dose: 999 mls/hr Documented by: [id number] Sodium Chloride (Nss 1000ml) 1,000 mls @ 999 mls/hr IV .Q1H1M ONE Stop: 04/16/20 20:38 Last Infusion: 04/16/20 20:46 Dose: 0 mls/hr Documented by: [id number] Admin: 04/16/20 19:58 Dose: 999 mls/hr Documented by: [id number] Calcium Gluconate 2,000 mg/ (Sodium Chloride) 70 mls @ 280 mls/hr IV NOW ONE Stop: 04/16/20 20:14 Last Admin: 04/16/20 19:59 Dose: Not Given Documented by: [id number] ECG Additional Comments: Sinus tachycardia Low voltage QRS Cannot poor quality with artifact. Code Status & VTE Plan Code Status Full SCDs Heparin VTE Prophylaxis Plan VTE Prophylaxis will be ordered: Yes Supervising Physician Co-Signing Physician Notes Attending addendum: I have physically seen this patient, have supervised the TASHIA's activities, and agree with the H&P unless as otherwise noted. Assessment and Plan: Acute encephalopathy- Differential primarily including drug withdrawal, sepsis of unknown source Admit to monitored bed with neuro checks per protocol Sepsis- Concern regarding possible endocarditis with history of IV drug use. Empiric antibiotics with daptomycin IV, Zosyn IV and azithromycin IV. Skin with concern regarding possible septic embolic phenomenon. Follow urine culture and sensitivities. Follow blood culture and sensitivity Order complete echocardiogram with Dopplers, may need a TANG Acute kidney injury/rhabdomyolysis- Creatinine 4.9 upon admission, with baseline 1.2. Received 2 L normal saline in the ED, and will continue normal saline 150 mils per hour Follow serial CBC with differential, chemistry profile and CK. Right UVJ stone- Empiric antibiotics as above. Follow urine culture sensitivity Consult urology Abnormal LFTs- AST 96, ALT 150 and albumin 2.4. Follow serial laboratories. May be secondary to rhabdomyolysis and sepsis. No abnormalities noted on CT of abdomen and pelvis Acute hepatitis profile Hypothyroidism- TSH 16.80 upon admission. Unclear if patient is taking her levothyroxine dose appropriately Remaining orders and notations as noted PG Care Time/CCT Total # of Minutes Spent Total Time Spent with Patient: Total time spent is greater than 50% in coordination of care (as documented) at patient's floor/unit and/or counseling patient: Coding Level of Care Code 61986 Initial Inpt Care Lvl 3 Diagnoses Encephalopathy acute G93.40 Sepsis A41.9 Sepsis acute organ dysfunction status: unspecified Sepsis type: sepsis due to unspecified organism Elevated CK R74.8 ESTEFANY (acute kidney injury) N17.9 Nephrolithiasis N20.0 Drug abuse and dependence F19.20 Thrombocytopenia D69.6 (1) Sepsis Sepsis acute organ dysfunction status: unspecified Sepsis type: sepsis due to unspecified organism Qualified Code(s): A41.9 - Sepsis, unspecified organism
[2020-04-16 21:43] LABS: Basophils # (auto) 0.02 K/uL (0-0.2); Basophils % (auto) 0.1 %; Echinocytes 1+; Eosinophils # (auto) 0.04 K/uL (0-0.5); Eosinophils % (auto) 0.2 %; Immature Granulocytes # (auto) 0.06 K/uL (0.00-0.02); Immature Granulocytes % (auto) 0.3 %; Lymphocytes # (auto) 1.37 K/uL (1.2-3.4); Lymphocytes % (auto) 7.6 %; Monocytes # (auto) 0.34 K/uL (0.11-0.59); Monocytes % (auto) 1.9 %; Neutrophils % (auto) 89.9 %; Platelet Estimate Decreased (Normal); Polychromasia 1+
[2020-04-16 22:23] LABS: Appearance Urine Turbid (Clear); Blood Urine 3+ (Negative); Color Urine Dark Yellow; Epithelial Cell Urine Auto >30 /lpf (0-5); Glucose Urine UA Negative (Negative); Ketones Urine Trace (Negative); Leukocyte Esterase Urine 1+ (Negative); Nitrite Urine Positive (Negative); Protein Urine Trace (Negative); Specific Gravity Urine 1.021 (1.000-1.030); Urobilinogen Urine Negative (Negative)
[2020-04-16 22:38] LABS: Bilirubin Urine 1+ (Negative)
[2020-04-16] MEDS ORDERED: LACTATED RINGER'S 1,000 ML IV ONE (22:38)
[2020-04-16 22:40] LABS: Bacteria Urine Automated 4+ (Negative); Calcium Oxalate Crystals Urine Present (None Prsent)
[2020-04-16 22:45] LABS: Amphetamines+Metham, Urine Pos (Neg); Barbiturates, Urine Neg (Neg); Benzodiazepine, Urine Neg (Neg); Cocaine, Urine Neg (Neg); MDMA (Ecstacy), Urine Pos (Neg); Methadone, Urine Neg (Neg); Opiate, Urine Neg (Neg); Phencyclidine, Urine Neg (Neg)
[2020-04-16 23:27] LABS: Fibrinogen 307 mg/dl (184-400); INR 1.1 (0.9-1.1); Prothrombin Time 11.8 Seconds (9.0-12.0)
[2020-04-16] MEDS: HEPARIN SOD 5,000 UNIT/0.5 ML VIAL SQ SCH (23:59)
[2020-04-17] MEDS: LEVOTHYROXINE SODIUM 88 MCG TABLET PO SCH (05:49)
[2020-04-17] MEDS: HEPARIN SOD 5,000 UNIT/0.5 ML VIAL SQ SCH ×3 (05:49→21:29)
[2020-04-17] MEDS ORDERED: PIPERACILLIN/TAZOBACTAM 4.5 GM in DEXTROSE 5% 100 ML IV SCH (06:00)
[2020-04-17 06:30] LABS: BUN Creatinine Ratio 20.1 (10-20); Calcium 8.2 mg/dl (8.5-10.1); Creatinine Clr Calc Pharmacy 21.6 ml/min; Est GFR (African American) 16.3; Potassium 4.1 mmol/L (3.5-5.1)
--- NOTE | 2020-04-17 06:49 | XRay Report ---
XR ankle LT min 3V routine CLINICAL HISTORY: Left ankle pain. Possible fracture COMPARISON: None. DISCUSSION: No fractures or dislocations are visualized. Corticated densities projected adjacent the lateral malleolar tip are felt to be old. IMPRESSION: No fractures identified. ACT 112: Negative or not required by law. Electronically signed by: Misael Pena M.D. 04/17/2020 6:47 AM
[2020-04-17] MEDS ORDERED: SODIUM CHLORIDE 0.9% 1000ML 1,000 ML IV ONE (07:39)
[2020-04-17] MEDS: GABAPENTIN 600 MG TAB PO SCH (07:40)
[2020-04-17] MEDS: AZITHROMYCIN 250 MG TAB PO SCH (07:41)
[2020-04-17] MEDS ORDERED: DAPTOmycin 350 MG in SYRINGE 0 ML IV SCH (08:00)
[2020-04-17] MEDS: LACTATED RINGER'S 1,000 ML IV SCH ×2 (09:12→16:56)
--- NOTE | 2020-04-17 09:18 | XCELERA ---
[id number]
--- NOTE | 2020-04-17 09:43 | Medical Student Progress Note ---
Date of Service April 17, 2020 Assessment & Plan (1) Encephalopathy acute: Mame Palacios is a 39 yo female with h/o IV drug abuse and several associated hospitalizations associated with overdose who was admitted to [facility] on 04/16/2020 for sepsis and concern for drug overdose. - Pt presented w/ altered mental status, concern for possible overdose of Suboxone, cannot rule out suicide - Head CT showed no intracranial abnormality - TSH 16.8 with normal T4 - Urine Toxicology positive amphetamine/ methamphetamine and MDMA - Altered mental status likely due to sepsis and/or drug overdose, although pt's continued alteration does not fit the timeline of a drug overdose - Suicide precautions ordered, 1 on - Psych has been consulted, pt was sedated during visit, will continue to follow (2) Sepsis: - Elevated WBC (18) in the setting of tachycardia and hypotension - U/A + leukocytes, nitrites, RBCs, Urine culture pending - Splinter hemorrhages seen at the bedside, erythematous lesions on hand raise concern for [place] nodes - TTE showed mild thickening of the tricuspid valve, but no definite vegetations - Likely secondary to facial cellulitis due to the infected nasal piercing. Other differentials to consider include cellulitis of the L & R malleolus due to IV drug use, endocarditis, or urosepsis - Infected nasal piercing removed at the bedside - Talked to cardiology, who advised against TANG since TANG would not help with better visualizing tricuspid valve - Broad Spectrum Antibiotic Therapy started as specified below, blood culture pending - Continue Azithromycin 500 mg qAM - Continue Piperacillin/tazobactam 4.5g q8h - Continue Daptomycin 350mg q48h - trend CBC daily Sepsis acute organ dysfunction status: unspecified Sepsis type: sepsis due to unspecified organism Qualified Code(s): A41.9 - Sepsis, unspecified organism (3) ESTEFANY (acute kidney injury): - Cr downtrending 3.84 from 4.64 on admission - Nephrolithiasis on CT w/ no signs of hydronephrosis or obstruction - Likely secondary to prerenal syndrome in the setting of hypotension due to sepsis - Given 2L NS in ED, 1L NS on medicine floor, responding appropriately - Continue LR 125 mls/hr - Continue to monitor I/Os - trend BMP daily (4) Drug abuse and dependence: - Hx of IV Fentanyl use, last hospitalized for overdose in February 2020 - Ecchymosis on R. & L. lateral malleolus consistent with injection site - HIV (1 &2) Ab & P24 Antigen, 4th generation test negative - Hep B surface antibody immune, awaiting Hep B surface antigen - Hep C negative - plan to ascertain nature of possible overdose as patient improves in mentation, as mentioned above - plan to consult the patient on rehabilitation options as well (5) Elevated CK: - CK 563 on admission, downtrended to 533 - K normal on admission 3.8; Ca 7.1 repleted w/ 2,000mg in ED - Likely secondary to fall and dehydration status - Continue IV resuscitation (6) Thrombocytopenia: - Plts 88 on admission, uptrended to 90 - Fibrin Degredation products >40, LDH 318, Haptoglobin pending - Peripheral smear not significant for any increase in schistocytes and spherocytes - Likely to be secondary to sepsis, low suspicion of a consumptive coagulopathy given no increase in schistocytes and PT/INR/Fibrinogen WNL - Trend CBC as above (7) Transaminitis: - AST 96, ALT 150, Alk phos 157 on admission - May be secondary to drug overdose, hypotension in the setting of sepsis, or viral hepatitis - Hep B pending - Hep C negative - Continue to monitor with CMP qd (8) DVT prophylaxis: - DVT prophylaxis: heparin - Diet: Regular - Dispo: med/surg with tele; consider drug rehab, inpt psych if confirmed suicide attempt - Code: full code Admission and Anticipated Discharge Date Admission Date: April 16, 2020 Supervising Attestation Attending attestation Pt seen and examined in concert with Std Dr. Negrete, Dr. Meng. In agreement with the documented findings as noted in the resident documentation with any exceptions or additions as noted here. Somnolent in bed with waxing and waning mentation during conversation, though answering questions appropriately - notes pain in nose, no pain in bilateral feet despite erythema. Denies any memory of the last few days. On examination, S1/S2 nl RRR no MCG. CTAB. Abd NT/ND BS+ve. Nose with diffuse erythema and swelling surrounding left nare hook piercing with +++ TTP. Bilateral foot erythema, left >> right without TTP with bilateral lateral ankle ecchymosis with mild excoriation/puncture visible. Metabolic encephalopathy - infectious vs. toxicologic origin - continue abx per below, follow up final tox report w/ consultation if necessary or if patient worsens. 1:1 w/ self-harm precautions Sepsis with multiple potential sources - h/o IVDA with cellulitis, abn UA w/ nephrolithiasis - continue broad spectrum abx and follow Cx. Nare piercing removed with nursing assistance. Trend CBC. HIV, Hepatitis panel ESTEFANY - likely dehydration based on presentation - continue hydration as noted, trend BMP. Transaminitis - septic related vs. concern for hepatitis in setting of IVDA - f/u panel, trend LFTs Else see resident documentation as noted. Subjective 39 yo F w/ hx of IV drug use on Suboxone presented w/ altered mental status. Pt was brought to ED by EMS after her mother was concerned that the pt had overdosed on her Suboxone. In the ED, pt was non cooperative and combative. ED course was significant for elevated WBC, elevated Cr, elevated CK, transaminitis, elevated TSH. U/A was positive for leukocytes, nitrites, RBCs. Urine drug screen + amphetamine/ methamphetamine and MDMA. EKG revealed sinus tachy w/ non specific T wave abnormality, changed from last EKG. Overnight, there were no acute events. Today, the patient is awake and responds to questions. She is still sedated, tending to go in and out of sleep when trying to obtain a history. She knows that she is in the hospital, but does not have much of a response in regards to what brought her to the hospital. She denies current IV drug use and did provide a response when asked when was the last time she used. When asked about depression and thoughts of hurting herself, she states she does not remember the events of the last few days. She is not in any pain. She denies fever, chills, fatigue, urinary frequency, urgency, dysuria. Review of Systems Constitutional: denies fever, chills, fatigue Respiratory: denies cough, dyspnea, change in sputum Cardiovascular: Additional Comments: denies chest pain, palpitations, edema Gastrointestinal: denies nausea, vomiting, abdominal pain Genitourinary: denies urinary frequency, urgency, dysuria Musculoskeletal: denies neck pain, joint pain, back pain Psychiatric: unsure whether or not she feels depressed or has had thoughts of hurting herself or others Physical Exam Constitutional: cooperative and + lethargic Eyes: PERRL, conjunctivae normal, anicteric sclerae ENMT: Nose: erythema and swelling at the superficial left nares, erythematous necrotic, indurated tissue surrounding nasal piercing on the left nares Respiratory: +rales bilaterally, normal respiratory effort Cardiovascular: +tachycardic, regular rhythm, no m/r/g Gastrointestinal (Abdomen): normal bowel sounds, soft, nontender, no hepatosplenomegaly Skin: Ecchymosis, erythema, and swelling of the L. & R. lateral malleolus, splinter hemorrhages first, third digit of the R. hand, erythematous lesions on hand Neurologic: CN II-XII intact bilaterally, sensory intact, UE & LE bilaterally decreased motor strength 3/5 Psychiatric: A+Ox3, euthymic affect Genitourinary: suprapubic tenderness Results & Data ([facility]) Vital Signs (Past 12 Hours) Vital Signs Temp Pulse Pulse Resp BP Pulse Ox 04/17/20 09:00 107 H 04/17/20 07:38 36.7 C 102 H 16 96/53 L 96 04/17/20 03:25 36.7 C 114 H 22 93/53 L 97 04/17/20 00:11 119 H 04/16/20 22:30 36.6 C 115 H 18 87/54 L 95 04/16/20 22:05 116 H 16 101/57 L 98 Laboratory Results Abnormal lab results 04/16/20 04/16/20 04/16/20 Range/Units 18:47 18:47 19:52 WBC (4.8-10.8) K/uL RBC (4.2-5.4) M/uL Hgb (12.0-16.0) g/dL Hct (37-47) % RDW Std Deviation (36.4-46.3) fL RDW Coeff of Lesly (11.5-14.5) % Plt Count (130-400) K/uL MPV (7.4-10.4) fL Neut # (Auto) (1.4-6.5) K/uL Immature Gran # (Auto) (0.00-0.02) K/uL Platelet Estimate (Normal) Chloride 108 H (98-107) mmol/L Carbon Dioxide 19 L (21-32) mmol/L BUN 87 H (7-18) mg/dl Creatinine 4.90 H* (0.6-1.2) mg/dl Glucose (70-99) mg/dl Lactate 2.5 H* (0.4-2.0) mmol/L Calcium 7.5 L (8.5-10.1) mg/dl Total Bilirubin 1.1 H (0.2-1) mg/dl AST 96 H (15-37) U/L ALT 150 H (12-78) U/L Alkaline Phosphatase 137 H (45-117) U/L Total Creatine Kinase 563 H (26-192) U/L Total Protein 5.4 L (6.4-8.2) gm/dl Albumin 2.4 L (3.4-5.0) gm/dl Albumin/Globulin Ratio 0.8 L (0.9-2) TSH 16.800 H (0.300-4.500) uIu/ml Salicylates < 1.7 L (2.8-20) mg/dl Acetaminophen 2 L (10-30) ug/ml 04/16/20 04/16/20 Range/Units 20:54 20:54 WBC 18.13 H (4.8-10.8) K/uL RBC 3.76 L (4.2-5.4) M/uL Hgb 11.0 L (12.0-16.0) g/dL Hct 32.0 L (37-47) % RDW Std Deviation 46.9 H (36.4-46.3) fL RDW Coeff of Lesly 14.9 H (11.5-14.5) % Plt Count 88 L (130-400) K/uL MPV 11.5 H (7.4-10.4) fL Neut # (Auto) 16.30 H (1.4-6.5) K/uL Immature Gran # (Auto) 0.06 H (0.00-0.02) K/uL Platelet Estimate Decreased L (Normal) Chloride 110 H (98-107) mmol/L Carbon Dioxide 20 L (21-32) mmol/L BUN 84 H (7-18) mg/dl Creatinine 4.64 H* (0.6-1.2) mg/dl Glucose 59 L (70-99) mg/dl Lactate (0.4-2.0) mmol/L Calcium 7.7 L (8.5-10.1) mg/dl Total Bilirubin (0.2-1) mg/dl AST (15-37) U/L ALT (12-78) U/L Alkaline Phosphatase (45-117) U/L Total Creatine Kinase 533 H (26-192) U/L Total Protein (6.4-8.2) gm/dl Albumin (3.4-5.0) gm/dl Albumin/Globulin Ratio (0.9-2) TSH (0.300-4.500) uIu/ml Salicylates (2.8-20) mg/dl Acetaminophen (10-30) ug/ml Diagnostic Findings XR chest 1V portable Cardiomediastinal and hilar silhouettes are within normal limits. No pneumothorax, pleural effusion, airspace consolidation or overt pulmonary edema. Bones of the chest appear grossly intact. IMPRESSION: No acute process. ABDOMEN AND PELVIS CT WITHOUT CONTRAST IMPRESSION: 1. Bilateral nonobstructing nephrolithiasis. There is a linear 5 mm calcification within the right hemipelvis near the ureterovesicular junction which is suggestive of a calculus within the distal ureter. A phlebolith could appear similarly. No associated obstructive uropathy. Correlate with urinalysis. 2. No bowel obstruction or bowel wall thickening. 3. Bibasilar groundglass densities suggest atelectasis versus pneumonitis. 4. 3.2 cm right ovarian cyst. Ankle Xray- no fracture Medications Administered Lorazepam (Ativan) 0.5 mg in 1 mls @ 0.5 mls/min IV UD PRN PRN Reason: Agitation Stop: 05/16/20 18:49 Last Admin: 04/16/20 21:14 Dose: 0.5 mls/min Documented by: [id number] Admin: 04/16/20 20:27 Dose: 0.5 mls/min Documented by: [id number] Admin: 04/16/20 19:59 Dose: 0.5 mls/min Documented by: [id number] Admin: 04/16/20 19:07 Dose: 0.5 mls/min Documented by: [id number] Discontinued Medications Calcium Gluconate (Calcium Gluconate 10% 10 Ml Vial) 2,000 mg IV NOW STA Stop: 04/16/20 19:36 Last Admin: 04/16/20 19:57 Dose: 2,000 mg Documented by: [id number] Sodium Chloride (Nss 1000ml) 1,000 mls @ 999 mls/hr IV .Q1H1M RICK Stop: 04/16/20 20:00 Last Infusion: 04/16/20 19:59 Dose: 0 mls/hr Documented by: [id number] Admin: 04/16/20 19:07 Dose: 999 mls/hr Documented by: [id number] Sodium Chloride (Nss 1000ml) 1,000 mls @ 999 mls/hr IV .Q1H1M ONE Stop: 04/16/20 20:38 Last Infusion: 04/16/20 20:46 Dose: 0 mls/hr Documented by: [id number] Admin: 04/16/20 19:58 Dose: 999 mls/hr Documented by: [id number] Calcium Gluconate 2,000 mg/ (Sodium Chloride) 70 mls @ 280 mls/hr IV NOW ONE Stop: 04/16/20 20:14 Last Admin: 04/16/20 19:59 Dose: Not Given Documented by: [id number] ECG Additional Comments: When compared with ECG of 17-MAR-2020 12:32, Nonspecific T wave abnormality, worse in Inferior leads Nonspecific T wave abnormality now evident in Anterolateral leads Resident Activity Tracking Resident Involvement: Resident Care Provided Care Provided: Adult Hospital Medicine
--- NOTE | 2020-04-17 09:55 | Electrocardiogram Report ---
Test Reason : Blood Pressure : / mmHG Vent. Rate : 105 BPM Atrial Rate : 105 BPM P-R Int : 126 ms QRS Dur : 080 ms QT Int : 352 ms P-R-T Axes : 064 027 021 degrees QTc Int : 465 ms Poor data quality, interpretation may be adversely affected Sinus tachycardia Low voltage QRS Poor R wave progression, consider anterior MN vs. lead placement vs. LVH Nonspecific ST abnormality Abnormal ECG When compared with ECG of 17-MAR-2020 12:32, Nonspecific T wave abnormality, worse in Inferior leads Nonspecific T wave abnormality now evident in Anterolateral leads Confirmed by Babar Slaughter ([id number]) on 04/17/2020 9:55:10 AM Referred By: REFERRED SELF Confirmed By:Bandar Slaughter
--- NOTE | 2020-04-17 09:57 | Electrocardiogram Report ---
Test Reason : Blood Pressure : / mmHG Vent. Rate : 102 BPM Atrial Rate : 102 BPM P-R Int : 136 ms QRS Dur : 086 ms QT Int : 346 ms P-R-T Axes : 063 040 041 degrees QTc Int : 450 ms Sinus tachycardia Low voltage QRS Nonspecific T wave abnormality Abnormal ECG When compared with ECG of 16-APR-2020 19:05, (unconfirmed) No significant change was found Confirmed by Babar Slaughter ([id number]) on 04/17/2020 9:57:45 AM Referred By: REFERRED SELF Confirmed By:Bandar Slaughter
[2020-04-17 10:10] LABS: Hematocrit (blood only) 30.6 % (37-47); Hemoglobin 10.5 g/dL (12.0-16.0); Mean Corpuscular Hemoglobin 29.1 pg (25-34); Mean Corpuscular Volume 84.8 fL (80-100); Red Blood Count 3.61 M/uL (4.2-5.4); White Blood Count 15.07 K/uL (4.8-10.8)
[2020-04-17 10:15] LABS: Mean Corpuscular Hgb Conc 34.3 g/dL (32-36); Mean Platelet Volume 11.8 fL (7.4-10.4); Platelet Count 90 K/uL (130-400)
[2020-04-17 10:29] LABS: Basophils # (auto) 0.02 K/uL (0-0.2); Basophils % (auto) 0.1 %; Echinocytes 1+; Eosinophils # (auto) 0.08 K/uL (0-0.5); Eosinophils % (auto) 0.5 %; Immature Granulocytes # (auto) 0.04 K/uL (0.00-0.02); Immature Granulocytes % (auto) 0.3 %; Lymphocytes # (auto) 1.13 K/uL (1.2-3.4); Lymphocytes % (auto) 7.5 %; Monocytes # (auto) 0.81 K/uL (0.11-0.59); Monocytes % (auto) 5.4 %; Neutrophils # (auto) 12.99 K/uL (1.4-6.5); Neutrophils % (auto) 86.2 %
--- NOTE | 2020-04-17 10:50 | Anesthesiology Consultation ---
Date of Service April 17, 2020 Assessment & Plan (1) Encounter for pre-operative examination: Chart Review Chart Review: carpentry specialist initiated History Height/Weight Height: 5 ft 6 in Weight: 83.3 kg Allergies Allergy/AdvReac Type Severity Reaction Status Date / Time No Known Allergies Allergy Unknown Verified 03/17/20 12:54 Medications Home Medications Medication Instructions Recorded Confirmed Last Taken gabapentin 1,200 mg PO BID 03/17/20 03/17/20 03/16/20 levothyroxine 88 mcg PO QAM 03/17/20 03/17/20 03/16/20 lisinopril 40 mg PO QAM 03/17/20 03/17/20 03/16/20 naloxone [Narcan] 1 spray INTRANASAL ONCE #2 ea 03/17/20 Unknown topiramate 0 mg PO BID 03/17/20 03/17/20 03/16/20 trazodone 100 mg PO HS 03/17/20 03/17/20 03/16/20 Active Medications Generic Name Dose Route Start Last Admin Trade Name Tori PRN Reason Stop Dose Admin Azithromycin 500 mg 04/17/20 09:00 04/17/20 07:41 Azithromycin 250 Mg Tab PO 05/29/20 08:59 500 mg QAM RICK Administration Gabapentin 1,200 mg 04/17/20 09:00 04/17/20 07:40 Gabapentin 600 Mg Tab PO 05/17/20 08:59 1,200 mg BID RICK Administration Heparin Sodium (Porcine) 5,000 units 04/16/20 22:38 04/17/20 05:49 Heparin Sod 5,000 Unit/0.5 Ml Vial SQ 05/16/20 22:37 5,000 units Q8 RICK Administration Daptomycin 350 mg/ Syringe 7 mls @ 3.5 mls/min 04/17/20 08:00 04/17/20 09:12 IV 05/29/20 07:59 3.5 mls/min Q48H RICK Administration Protocol Lactated Ringer's 1,000 mls @ 125 mls/hr 04/17/20 08:40 04/17/20 09:12 Lr IV 05/17/20 08:39 125 mls/hr .Q8H RICK Administration Levothyroxine Sodium 88 mcg 04/17/20 06:30 04/17/20 05:49 Levothyroxine Sodium 88 Mcg Tablet PO 05/17/20 06:29 Not Given DAILYBB RICK Past Medical History Medical History DVT (deep vein thrombosis) in Hypertension Hypothyroidism (acquired) Past Surgical History Surgical History History of tubal ligation Social History Smoking Status: Unknown if ever smoked Hx Substance Use: Yes substance use type: unknown Physical Exam Vital Signs Last Vital Signs Temp 98.1 F 04/17/20 07:38 Pulse 107 H 04/17/20 09:00 Resp 16 04/17/20 07:38 BP 96/53 L 04/17/20 07:38 Pulse Ox 96 04/17/20 07:38 Testing Laboratory Results 04/17/20 05:44 04/17/20 05:43 PT Cancelled 04/16/20 22:46 INR Cancelled 04/16/20 22:46 Urine Color Dark Yellow 04/16/20 22:05 Urine Appearance Turbid (Clear) A 04/16/20 22:05 Urine pH 5.0 (4.5-7.5) 04/16/20 22:05 Ur Specific [place] 1.021 (1.000-1.030) 04/16/20 22:05 Urine Protein Trace (Negative) H 04/16/20 22:05 Urine Glucose (UA) Negative (Negative) 04/16/20 22:05 Urine Ketones Trace (Negative) H 04/16/20 22:05 Urine Nitrite Positive (Negative) A 04/16/20 22:05 Ur Leukocyte Esterase 1+ (Negative) H 04/16/20 22:05 Urine WBC (Auto) 1-5 /hpf (0-5) 04/16/20 22:05 Urine RBC (Auto) 5-10 /hpf (0-4) H 04/16/20 22:05 U Hyaline Cast (Auto) 5-10 /lpf (0-5) H 04/16/20 22:05 U Epithel Cells (Auto) >30 /lpf (0-5) H 04/16/20 22:05 Urine Bacteria (Auto) 4+ (Negative) H 04/16/20 22:05 04/17/20 06:30 POC Glucose 76 Laboratory Tests 04/16/20 20:09 SARS-CoV-2, RNA, NAAT NEGATIVE Electrocardiogram Date: 04/17/20 Sinus tachycardia, 102 bpm Low voltage QRS Nonspecific T wave abnormality Abnormal ECG When compared with ECG of 16-APR-2020 19:05, (unconfirmed) No significant change was found Confirmed by Babar Slaughter ([id number]) on 04/17/2020 9:57:45 AM Chest X-Ray Date: 04/16/20 Findings: + NAD Echocardiogram Date: 04/17/20 There is no evidence of a mass or vegetation. This does not rule out end ocarditis. LV systolic function is normal. There is some mild thickening of the valve at the coaptation, but no definite vegetation Right ventricular systolic pressure is normal
[2020-04-17 11:49] LABS: Hepatitis B Surface Antibody Immune
[2020-04-17 12:28] LABS: Hepatitis C IgG 13Yrs+Old_Rflx Neg (Neg)
--- NOTE | 2020-04-17 13:33 | Communication Note ---
Date of Service: April 17, 2020 Psychiatric consultation requested to evaluate patient for suspected overdose, with unknown intent. Collateral obtained from the patient's mother suggested concern that patient may have taken more than her scheduled dose of Suboxone. Pt was reportedly somewhat uncooperative in the ED, though not combative. Documentation suggests that patient thus far has been limited in her ability to provide reliable information. She did have an ED presentation in 02/2020 following an overdose by injecting Fentanyl IV. Pt received 5 doses of Narcan prior to ED arrival. At that time, suicidal ideation was denied and patient was discharged home to her mother's from the ED. Initially assessment from our service was attempted by our psychiatric nurse liaisons. Interview reportedly limited by patient's sedation. She was at least able to deny current suicidality or homicidality. Given pending TANG and patient's limited ability to participate in interview, we will follow patient's case at this time until she is able to participate in a meaningful interview with our service. In the interim, would recommend ongoing attempts to gather collateral inf ormation from mother or other supports as able. Should also attempt to confirm home medication regimen. PDMP does suggest patient was prescribed #33 sublingual tablets of Suboxone by Dr. Moses on 03/26/2020.
[2020-04-17] MEDS: PIPERACILLIN/TAZOBACTAM 4.5 GM in DEXTROSE 5% 100 ML IV SCH ×2 (13:45→21:29)
[2020-04-17] MEDS: ACETAMINOPHEN 325 MG TAB PO PRN (21:29)
[2020-04-18] MEDS: LACTATED RINGER'S 1,000 ML IV SCH ×3 (00:55→17:47)
[2020-04-18] MEDS: PIPERACILLIN/TAZOBACTAM 4.5 GM in DEXTROSE 5% 100 ML IV SCH ×3 (05:39→21:33)
[2020-04-18] MEDS: HEPARIN SOD 5,000 UNIT/0.5 ML VIAL SQ SCH ×3 (05:40→21:33)
[2020-04-18] MEDS: LEVOTHYROXINE SODIUM 88 MCG TABLET PO SCH (05:40)
[2020-04-18 06:17] LABS: Hematocrit (blood only) 27.8 % (37-47); Hemoglobin 9.4 g/dL (12.0-16.0); Mean Corpuscular Hemoglobin 28.9 pg (25-34); Mean Corpuscular Hgb Conc 33.8 g/dL (32-36); Mean Corpuscular Volume 85.5 fL (80-100); RDW Coefficient of Variation 15.2 % (11.5-14.5); RDW Standard Deviation 47.9 fL (36.4-46.3); Red Blood Count 3.25 M/uL (4.2-5.4)
[2020-04-18 06:58] LABS: Albumin Globulin Ratio 0.7 (0.9-2); Albumin Level 2.1 gm/dl (3.4-5.0); BUN Creatinine Ratio 24.2 (10-20); Bilirubin,Total 0.8 mg/dl (0.2-1); Calcium 8.2 mg/dl (8.5-10.1); Creatinine Clr Calc Pharmacy 38.4 ml/min; Est GFR (Non-African American) 28.5; Globulin 3.1 gm/dl (2.5-4.0); Magnesium 1.9 mg/dl (1.8-2.4); Potassium 3.6 mmol/L (3.5-5.1); Total Protein 5.2 gm/dl (6.4-8.2)
[2020-04-18 06:59] LABS: Mean Platelet Volume 11.4 fL (7.4-10.4); Platelet Count 79 K/uL (130-400)
[2020-04-18 07:00] LABS: Basophils # (auto) 0.02 K/uL (0-0.2); Basophils % (auto) 0.2 %; Eosinophils # (auto) 0.14 K/uL (0-0.5); Eosinophils % (auto) 1.6 %; Immature Granulocytes # (auto) 0.02 K/uL (0.00-0.02); Immature Granulocytes % (auto) 0.2 %; Lymphocytes # (auto) 1.16 K/uL (1.2-3.4); Lymphocytes % (auto) 13.5 %; Monocytes # (auto) 0.61 K/uL (0.11-0.59); Monocytes % (auto) 7.1 %; Neutrophils # (auto) 6.65 K/uL (1.4-6.5); Neutrophils % (auto) 77.4 %
[2020-04-18] MEDS: AZITHROMYCIN 250 MG TAB PO SCH (08:52)
--- NOTE | 2020-04-18 10:18 | Medical Student Progress Note ---
Date of Service April 18, 2020 Assessment & Plan (1) Encephalopathy acute: Pt presented w/ altered mental status likely secondary to drug use, Suboxone overdose, or sepsis. Head CT revealed no intracranial abnormality. TSH was elevated on admission (16.8), but T4 was normal. Urine toxicology was positive for amphetamine/ methamphetamine and MDMA. Psych was consulted to evaluate patient for reported concern for possible overdose and suicide attempt rule out. - Suicide precautions ordered, 1 on , per psychiatric recommendation - Hold gabapentin 1200mg BID for ESTEFANY - Hold trazodone 100 mg qhs until sedation resolves (2) Sepsis: Leukocytosis in the setting of tachycardia and hypotension concerning for sepsis. Multiple possible etiologies at this time: endocarditis, urosepsis, and cellulitis.CXR was clear ruling out pneumonia. Hx of IV drug use in addition to splinter hemorrhages and possible osler nodes on exam suspicious for endocarditis. TTE showed mild thickening of tricuspid valve, no definite vegetations. Cardiology advised against TANG. Venous doppler was negative for septic emboli, but did show bilateral complex popliteal cysts. Urine culture + gram negative bacillus. Not likely to be source of sepsis since no sign of n ephrosis on Abd CT. Physical exam findings consistent with cellulitis of the nares, possible cellulitis of the L & R malleolus. Face CT revealed mild soft tissue swelling of the nares, no abscess seen. - Vitals have normalized, leukocytosis resolved. - Blood culture pending - Broad Spectrum Antibiotic Therapy started - Continue Azithromycin 500 mg qAM - Continue Piperacillin/tazobactam 4.5g q8h - Continue Daptomycin 350mg q48h - Continue to monitor CBC daily Sepsis acute organ dysfunction status: unspecified Sepsis type: sepsis due to unspecified organism Qualified Code(s): A41.9 - Sepsis, unspecified organism (3) ESTEFANY (acute kidney injury): Acute Kidney Injury likely secondary to prerenal syndrome in the setting of hypotension due to sepsis. Nephrolithiasis seen on CT w/ no signs of hydronephrosis or obstruction. Cr downtrending 2.14 from 4.64 on admission - Given 2L NS in ED, 1L NS on medicine floor - Continue LR 125 mls/hr - Continue to monitor CMP daily (4) Drug abuse and dependence: Pt has a hx of IV drug use, last hospitalized for IV fentanyl overdose in February 2020. She completed a rehab 03/11/21 and was following with Dr. Moses, who was prescribing pt's Suboxone. Physical exam findings on the L & R. malleolar appear consistent with IV drug use. Urine toxicology + amphetamine/methamphetamine and MDMA. HIV negative, Hep B negative, Hep C negative - Continue to assess pt's interest in rehab (5) Elevated CK: Elevated CK 563 on admission likely secondary to fall and dehydration status, has downtrended to 533. - Continue IV resuscitation (6) Thrombocytopenia: Platelets were 88k on admission. Platelet level during past hospitalization was normal (255k). Thrombocytopenia likely secondary to sepsis, low suspicion of a consumptive coagulopathy since platelet smear showed no increase in schistocytes, PT/INR, fibrinogen, and haptoglobin were all normal. - Continue to monitor with CBC daily (7) Transaminitis: Liver enzymes elevated on admission (AST 96, ALT 150, Alk phos 157). Likely to be secondary to drug overdose or hypotension in the setting of sepsis since liver enzymes are downtrending (AST 90, ALT 166,Alk phos 133). - Continue to monitor with CMP daily (8) DVT prophylaxis: - DVT prophylaxis: heparin - Diet: Regular - Dispo: consider drug rehab, inpt psych if confirmed suicide attempt - Code: full code Admission and Anticipated Discharge Date Admission Date: April 16, 2020 Supervising Attestation Attending attestation Pt seen and examined in concert with Std. Dr. Negrete, Dr. Meng . In agreement with the documented findings as noted in the resident documentation with any exceptions or additions as noted here. Improved attention/focus, easily arousable to voice. Improved pain in the nose, toes. Stable chronic pain in the posterior knees. On examination, S1/S2 nl RRR no MCG. CTAB. Abd NT/ND BS+ve. Nose TTP with less erythema and swelling. Bilateral toes with persistent erythema and TTP. Metabolic encephalopathy - infectious vs. toxicologic origin - psychiatric consultation - continue abx per below, 1:1 precautions Sepsis with multiple potential sources - h/o IVDA with cellulitis, abn UA w/ nephrolithiasis - continue broad spectrum abx and follow Cx. HIV/hepatitis negative. ESTEFANY - likely dehydration based on presentation - improving, continue fluids, trend BMP. Transaminitis - septic related vs. concern for hepatitis in setting of IVDA - downtrending, neg hep panel, trend LFTs Else see student/resident documentation as noted. Subjective Overnight, there were no acute events. Today, pt is less sedated and is able to answer questions appropriately. Overall, the patient feels weak. She does not feel like she can ambulate or even get out of bed. She does not have much of an appetite. She complains of pain in her fingers, toes, and knees. She is not sure how long this pain has been going on for, but does remember experiencing the knee pain prior to admission. She is also experiencing some pain in her mouth stating that her mouth feels like it has ulcers. She had seen an oral surgeon in the past to remove some infected teeth, but was unsure how long ago this was. She admits to IV drug use, but is unsure the last time she used. She does not remember what brought her to the hospital. She is aware of the overdose as heard from staff, but she denies intending to hurt herself. Review of Systems Constitutional: +fatigue, +myalgias, denies fever, chills Respiratory: denies cough, dyspnea, change in sputum Cardiovascular: Additional Comments: denies chest pain, palpitations, edema Gastrointestinal: denies nausea, vomiting, abdominal pain Genitourinary: denies urinary frequency, urgency, dysuria Musculoskeletal: +finger pain, +toe pain, +knee pain Neurologic: + generalized weakness and + memory loss Psychiatric: denies suicidal and homicidal thoughts Physical Exam Constitutional: comfortable and + lethargic Eyes: PERRL, conjunctivae normal, anicteric sclerae ENMT: Nose: erythema and swelling at the superficial left nares, erythematous necrotic, indurated tissue surrounding nasal piercing on the left nares Mouth: poor dentition, normal oral mucosa Respiratory: Auscultation: + rales +rales, normal respiratory effort Cardiovascular: RRR, no murmur, no edema Gastrointestinal (Abdomen): normal bowel sounds, soft, nontender, no hepatosplenomegaly Musculoskeletal: Ecchymosis, erythema, and swelling of the L. & R. lateral malleolus, Ecchymosis of the R. knee Skin: splinter hemorrhages first, third digit of R. hand; erythematous lesions on hand Psychiatric: A+Ox3, euthymic affect Results & Data ([facility]) Vital Signs (Past 12 Hours) Vital Signs Temp Pulse Pulse Resp BP Pulse Ox 04/18/20 07:13 89 04/18/20 03:16 36.7 C 105 H 18 135/79 96 04/18/20 00:50 103 H 04/17/20 23:04 37.0 C 103 H 16 136/68 97 Resident Activity Tracking Resident Involvement: Resident Care Provided Care Provided: Adult Hospital Medicine
[2020-04-18] MEDS: DAPTOmycin 350 MG in SYRINGE 0 ML IV SCH (10:58)
--- NOTE | 2020-04-18 10:58 | Psychiatric Consultation ---
Date of Consultation April 18, 2020 Impression / Recommendations Impression Dr. Cindi Alvarez was directly involved in review and discussion of the patient's case and participated in medical decision making regarding treatment recommendations. RECOMMENDATIONS: 04/18 - Psychiatric consultation requested to evaluate patient for reported concern for possible overdose, patient unable to participate in conversation early in admission to rule out suicidal intent. Pt is being treated by our hospitalist team for sepsis. - Collateral information was obtained from the patient's parents, who both separately report ongoing concerns about the patient's substance use. Mother reported that patient had been more lethargic for several days prior to her ED presentation. Patient, herself, feels that her dose of Suboxone is too high. - Would encourage the primary team to coordinate with Dr. Moses regarding the patient's presentation/condition, positive drug screen, and recommendations regarding the ongoing use of Suboxone. - Pt does report her current psychotropic medications include gabapentin 1200mg BID and trazodone 100mg qHS. Pt is currently ordered the gabapentin. Would continue to hold the trazodone given excessive sedation observed here in the hospital. Pt states that she does not take topiramate anymore, but it had been prescribed in the past for migraine. - Encourage case management consultation to meet with the patient and discuss D&A rehab versus outpatient D&A treatment options. Pt does state she would be willing to consider treatment options, but not yet verbalizing a specific choice. - Please reach out to our service with any additional questions or updates. Pt is denying SI/HI, hallucinations, signs of psychosis or other acute mental health symptoms - no indication for inpatient psychiatric admission at this time. Risk Factors Assessment Do You Have Access To A Gun?: No Psych History Identifying Data 39-year-old female admitted medically on 04/16/2020 after presenting to the ED with altered mental status. Pt is being treated for sepsis, but mother reported concern for possible overuse/overdose of Suboxone. Psychiatric consultation was requested by our hospitalist service due to possible overdose, with unclear intent. Chief Complaint "An overdose? I guess...?" History of Present Illness Mame Palacios is a 39-year-old female admitted medically on 04/16/2020 after the patient presented to the ED with altered mental status. The patient's mother reportedly found the patient to be disoriented and called EMS. Mother verbalized concern that patient may have overused or overdosed on her Suboxone - it does not look like a formal pill count was done. Psychiatric consultation was requested by our hospitalist service to evaluate further for possible overdose. When consult was initially ordered, patient was still lethargic and disoriented and unable to participate in meaningful conversation. Pt was able to meet with our liaison nurse this morning, but not fully coherent to complete suicide risk assessment. She did provide permission for collateral information to be obtained from her mother and father. Psychiatric nurse liaison spoke with both parents who reported ongoing concern for the patient's substance use. They could not provide any specific details about the patient's mental health history. Mother did state that patient had made a comment in passing about "I should just take a gun to my head", but stated this was several days prior to her admission and there were no obvious mood concerns after that statement. Mother report that roughly half of the patient's bottle of Suboxone remains. Mother reported she did not feel patient's presentation was related to a suicide attempt. This provider did meet with the patient for psychiatric assessment, accompanied by our psychiatric nurse liaison. Pt was sleeping at time of our arrival, but did wake to verbal stimuli and became more alert throughout the course of our conversation. Pt was asked her understanding of the reason for hospitalization. With a questioning look on her face, she stated "an overdose? I guess...?" Pt states this is only based on information she received from staff here. When asked if she thought this sounded possible, she reported "I would be shocked. I was doing so good with my program, my recovery program from [place]." Pt states she completed her program on 03/11/2020 and returned to the area. She states "I was so proud of myself for scheduling with Dr. Farley[moisés]." Pt does admit that she started Suboxone and felt as though the dose was "too much." She states she was instructed to take "a half tab every morning and a half tab every night." Pt does admit to some frustration with her mother prior to her admission and stated she was exploring whether she could live with her father instead. Pt denies that there were any significant conflicts. Pt denied significant depressive symptoms or extreme anxiety. She denies suicidal ideation, stating "I don't know what it is about me, but I'm not like that. I don't get depressed." Pt denies history of SI or true suicide attempts. She adamantly denies that her presentation would have been related to any actions with the intent to end her life. Pt confirms that she does take gabapentin and trazodone. Otherwise, she denies known history of psychiatric conditions. Pt did become more fatigued during our conversation. We briefly discussed treatment options on discharge - patient is willing to consider inpatient rehab, though was admittedly falling asleep again at the time this was discussed. Pt did not verbalize any safety concerns. Past Psychiatric History Current Psychiatric Diagnosis: Pt unable to clarify any history of psychiatric disorders Outpatient Services: Dr. Moses for Suboxone prescription Do You Have Access To A Gun?: No History of Previous Suicide Attempt: No Past Medication Trials: Pt unable to recall, but states she has stopped many recommended medication due to "I didn't like how they made me feel, I felt really unstable on them." 1. Zoloft 2. Gabapentin 3. Topamax - migraines 4. Trazodone Allergies Allergy/AdvReac Type Severity Reaction Status Date / Time No Known Allergies Allergy Unknown Verified 03/17/20 12:54 Home Medications Medication Instructions Recorded Confirmed Type gabapentin 1,200 mg PO BID 03/17/20 03/17/20 History levothyroxine 88 mcg PO QAM 03/17/20 03/17/20 History lisinopril 40 mg PO QAM 03/17/20 03/17/20 History naloxone [Narcan] 1 spray INTRANASAL ONCE #2 ea 03/17/20 Rx topiramate 0 mg PO BID 03/17/20 03/17/20 History trazodone 100 mg PO HS 03/17/20 03/17/20 History Family History Denies known family history of mental health conditions. Substance Abuse History Initially, patient reported only use of Suboxone and chewing tobacco. Pt did later admit to use of methamphetamine after be questioned about her positive drug screen. UDS positive for amphetamine/methamphetamine and MDMA. Recent overdose of IV Fentanyl in 02/2020. Personal History Living Arrangements: Home (had been living with mother prior to admission) Highest Grade Completed: High School Graduate Employment Status: Unemployed Marital Status: Single Beliefs That Will Affect Care: Spiritual (Synagogue) History of Legal Problems: Initially denied, but later admitted to history of incarceration and being on parole/probation. Psychological Trauma History Comment: Recent of half-sister by overdose. Patient History Medical History DVT (deep vein thrombosis) in Hypertension Hypothyroidism (acquired) Surgical History History of tubal ligation Social History Smoking Status: Unknown if ever smoked Tobacco Type: Cigarettes Hx Substance Use: Yes Preferred Language: Hebrew Communication Ability: Impaired Waste[employer] Operator Required: No Beliefs That Will Affect Care: Spiritual (Synagogue) Current Living Situation: Parent Feels Safe at Home: Yes Assistive Devices: None Physical Exam Psychiatric: Orientation: alert, oriented x 3 and cooperative (superficially, though fatigue limits full cooperation) Apperance: appropriately dressed, + disheveled and appeared stated age Overweight-appearing female. Appropriately dressed for setting, wearing paper scrubs. Poor grooming, hair pulled up in messy bun. Pt overall appears unkempt. Gauge ear piercings, eyebr ow piercing. Pt has multiple abrasions on her fingers and visible bruising on her left ankle/foot. Level of hygiene appears poor. Eye Contact: + fair eye contact (difficulty maintaining eye contact only at beginning and end of interview) Motor Behavior: no abnormal motor movements (observed while sitting propped up in bed) Speech: + abnormal rate/rhythm/volume of speech (speech is still somewhat slurred, improved as conversation continued ) Affect: + blunted affect (subdued, appearing fatigued) Mood: no depressed mood Thought Process: + concrete thought process Thought Content: reality based without delusions; no hopelessness Suicidal Thoughts: denies suicidal thoughts, denies suicidal plan and denies suicidal intent Cognition: attention grossly intact (for the majority of conversation); + recent memory not intact Insight: + limited insight Judgement: + limited judgement Vital Signs (Past 24 Hours): Last Vital Signs Temp 36.7 C 04/18/20 03:16 Pulse 89 04/18/20 07:13 Resp 18 04/18/20 03:16 BP 135/79 04/18/20 03:16 Pulse Ox 96 04/18/20 03:16 Review of Systems Constitutional: reports fatigue Cardiovascular: denied Respiratory: denied Gastrointestinal: poor appetite Neurological: denied Psychiatric: denies symptoms other than stated above Total of at least 10 systems reviewed, pertinent positives as above and in HPI. Results & Data ([facility]) Medications Administered Acetaminophen (Acetaminophen 325 Mg Tab) 650 mg PO Q4H PRN PRN Reason: pain/fever Stop: 05/16/20 22:37 Last Admin: 04/17/20 21:29 Dose: 650 mg Documented by: [id number] Azithromycin (Azithromycin 250 Mg Tab) 500 mg PO QAM RICK Stop: 05/29/20 08:59 Last Admin: 04/18/20 08:52 Dose: 500 mg Documented by: [id number] Admin: 04/17/20 07:41 Dose: 500 mg Documented by: [id number] Gabapentin (Gabapentin 600 Mg Tab) 1,200 mg PO BID RICK Stop: 05/17/20 08:59 Last Admin: 04/17/20 07:40 Dose: 1,200 mg Documented by: [id number] Heparin Sodium (Porcine) (Heparin Sod 5,000 Unit/0.5 Ml Vial) 5,000 units SQ Q8 RICK Stop: 05/16/20 22:37 Last Admin: 04/18/20 05:40 Dose: 5,000 units Documented by: [id number] Admin: 04/17/20 21:29 Dose: 5,000 units Documented by: [id number] Admin: 04/17/20 13:46 Dose: 5,000 units Documented by: [id number] Admin: 04/17/20 05:49 Dose: 5,000 units Documented by: [id number] Admin: 04/16/20 23:59 Dose: 5,000 units Documented by: [id number] Lactated Ringer's (Lr) 1,000 mls @ 125 mls/hr IV .Q8H RICK Stop: 05/17/20 08:39 Last Admin: 04/18/20 08:52 Dose: 125 mls/hr Documented by: [id number] Infusion: 04/18/20 08:52 Dose: 125 mls/hr Documented by: [id number] Admin: 04/18/20 00:55 Dose: 125 mls/hr Documented by: [id number] Infusion: 04/18/20 00:55 Dose: 125 mls/hr Documented by: [id number] Admin: 04/17/20 16:56 Dose: 125 mls/hr Documented by: [id number] Infusion: 04/17/20 16:56 Dose: 125 mls/hr Documented by: [id number] Admin: 04/17/20 09:12 Dose: 125 mls/hr Documented by: [id number] Piperacillin Sod/Tazobactam (Sod 4.5 gm/ Dextrose) 120 mls @ 30 mls/hr IV Q8H [facility]; Protocol Stop: 05/29/20 13:59 Last Infusion: 04/18/20 09:39 Dose: 0 mls/hr Documented by: [id number] Admin: 04/18/20 05:39 Dose: 30 mls/hr Documented by: [id number] Infusion: 04/18/20 01:33 Dose: 0 mls/hr Documented by: [id number] Admin: 04/17/20 21:29 Dose: 30 mls/hr Documented by: [id number] Infusion: 04/17/20 18:16 Dose: 0 mls/hr Documented by: [id number] Admin: 04/17/20 13:45 Dose: 30 mls/hr Documented by: [id number] Levothyroxine Sodium (Levothyroxine Sodium 88 Mcg Tablet) 88 mcg PO DAILYBB [facility] Stop: 05/17/20 06:29 Last Admin: 04/18/20 05:40 Dose: 88 mcg Documented by: [id number] Admin: 04/17/20 05:49 Dose: Not Given Documented by: [id number] Coding Level of Care Code 18303 [facility] Intl Hosp Care Lvl 2
--- NOTE | 2020-04-18 13:52 | CT Scan Report ---
MAXILLOFACIAL CT CT DOSE: 714.96 mGy.cm HISTORY: Facial cellulitis query abscess TECHNIQUE: Multiaxial CT images of the maxillofacial region were performed and reformatted in the cor onal plane without the use of contrast. A dose lowering technique was utilized adhering to the [place]. COMPARISON: None. FINDINGS: The visualized cervical spine, skull base, pterygoid plates, nasal bones, lamina papyracea, orbital floors, mandible, and zygomatic arches are intact. No fractures. The orbits are unremarkable . Near-complete opacification of the anterior ethmoid air cells and partial opacities of the anterior nasal cavity. Mild mucosal thickening within the maxillary sinuses. Multiple absent teeth are noted. Bony defects seen within the alveolar plate of the left hemimandible and bilateral posterior maxilla which is likely chronic. The mastoid air cells are clear. The visualized brain parenchyma and orbits are unremarkable. Mild nasal soft tissue swelling. No definite abscess or mass on this noncontrast s tudy. A few prominent right submandibular lymph nodes. The largest measures 10 x 6 mm. The globes and retrobulbar fat are intact. Metallic ring within the right supraorbital soft tissues. IMPRESSION: 1. Mild nasal soft tissue swelling. 2. No definite loculated fluid collections on this noncontrast study to suggest an abscess. 3. Overall poor dentition with multiple absent teeth. Bony defects at the left mandibular molars and bilateral maxillary molars are likely chronic. 4. Near-complete opacification of the anterior ethmoid air cells and partial opacification of the ant erior nasal cavity. ACT 112: Negative or not required by law. Electronically signed by: Manan Pina M.D. 04/18/2020 1:51 PM
--- NOTE | 2020-04-18 14:27 | Ultrasound Report ---
BILATERAL LOWER EXTREMITY VENOUS DOPPLER HISTORY: Bilateral posterior lower leg pain. Suspicion for DVT COMPARISON STUDY: None. FINDINGS: There is normal compressibility, flow, and augmentation within the bilateral lower extremit y deep venous systems. Bilateral slightly complex popliteal cyst measuring 5.9 x 2.0 x 1.2 cm on the right and 4.3 x 2.6 x 1.5 cm on the left. IMPRESSION: No DVT within the right or left lower extremity. Slightly complex bilateral popliteal cysts. ACT 112: Negative or not required by law. Electronically signed by: Manan Pina M.D. 04/18/2020 2:26 PM
--- NOTE | 2020-04-18 14:28 | Ultrasound Report ---
US ankle/brachial index comp CLINICAL HISTORY: Numbness/erythema in toes - suspicion for emboli COMPARISON STUDY: None. FINDINGS: Bilateral ankle brachial indices measured with the posterior tibial and dorsalis pedis saleem sanjuanita measure between 1.0 and 1.1. IMPRESSION: Normal bilateral ankle brachial indices measure between 1.0 and 1.1. ACT 112: Negative or not required by law. Electronically signed by: Manan Pina M.D. 04/18/2020 2:27 PM
--- NOTE | 2020-04-18 18:06 | Medical Student Progress Note ---
Date of Service April 18, 2020 Assessment & Plan Admission and Anticipated Discharge Date Admission Date: April 16, 2020 Results & Data ([facility]) Vital Signs (Past 12 Hours) Vital Signs Temp Pulse Pulse Resp BP Pulse Ox 04/18/20 15:00 36.2 C L 90 18 110/77 98 04/18/20 07:13 89
[2020-04-18] MEDS: ACETAMINOPHEN 325 MG TAB PO PRN (21:33)
[2020-04-19] MEDS: LACTATED RINGER'S 1,000 ML IV SCH ×3 (01:00→16:23)
[2020-04-19] MEDS: LEVOTHYROXINE SODIUM 88 MCG TABLET PO SCH (05:40)
[2020-04-19] MEDS: HEPARIN SOD 5,000 UNIT/0.5 ML VIAL SQ SCH ×3 (05:40→20:11)
[2020-04-19] MEDS: PIPERACILLIN/TAZOBACTAM 4.5 GM in DEXTROSE 5% 100 ML IV SCH ×2 (05:44→14:41)
[2020-04-19 06:11] LABS: Hematocrit (blood only) 26.2 % (37-47); Hemoglobin 8.9 g/dL (12.0-16.0); Mean Corpuscular Hemoglobin 28.8 pg (25-34); Mean Corpuscular Volume 84.8 fL (80-100); RDW Coefficient of Variation 14.9 % (11.5-14.5); RDW Standard Deviation 46.4 fL (36.4-46.3); Red Blood Count 3.09 M/uL (4.2-5.4); White Blood Count 4.03 K/uL (4.8-10.8)
[2020-04-19 06:14] LABS: Mean Platelet Volume 11.3 fL (7.4-10.4); Platelet Count 81 K/uL (130-400)
[2020-04-19 06:33] LABS: Basophils # (auto) 0.01 K/uL (0-0.2); Basophils % (auto) 0.2 %; Eosinophils # (auto) 0.17 K/uL (0-0.5); Eosinophils % (auto) 4.2 %; Immature Granulocytes # (auto) 0.07 K/uL (0.00-0.02); Immature Granulocytes % (auto) 1.7 %; Lymphocytes # (auto) 1.44 K/uL (1.2-3.4); Lymphocytes % (auto) 35.7 %; Monocytes # (auto) 0.62 K/uL (0.11-0.59); Monocytes % (auto) 15.4 %; Neutrophils # (auto) 1.72 K/uL (1.4-6.5); Neutrophils % (auto) 42.8 %; Ovalocytes 1+
[2020-04-19 07:01] LABS: BUN Creatinine Ratio 22.2 (10-20); Calcium 8.4 mg/dl (8.5-10.1); Creatinine Clr Calc Pharmacy 59.2 ml/min; Est GFR (African American) 55.6; Magnesium 1.7 mg/dl (1.8-2.4)
[2020-04-19] MEDS: AZITHROMYCIN 250 MG TAB PO SCH (08:36)
[2020-04-19] MEDS: ACETAMINOPHEN 325 MG TAB PO PRN (08:40)
[2020-04-19 08:54] LABS: Albumin Level 1.9 gm/dl (3.4-5.0); Bilirubin Direct 0.3 mg/dl (0-0.2); Bilirubin,Total 0.6 mg/dl (0.2-1); Total Protein 4.9 gm/dl (6.4-8.2)
[2020-04-19] MEDS: DAPTOmycin 350 MG in SYRINGE 0 ML IV SCH (11:35)
--- NOTE | 2020-04-19 13:36 | Medical Student Progress Note ---
Date of Service April 19, 2020 Assessment & Plan (1) Encephalopathy acute: Pt presented w/ altered mental status likely secondary to drug use, Suboxone overdose, or sepsis. Head CT revealed no intracranial abnormality. TSH was elevated on admission (16.8), but T4 was normal. Urine toxicology was positive for amphetamine/ methamphetamine and MDMA. Psych was consulted to evaluate patient for reported concern for possible overdose and suicide attempt rule out. - Suicide precautions ordered, 1 on , per psychiatric recommendation - Hold gabapentin 1200mg BID for ESTEFANY - Hold trazodone 100 mg qhs until sedation resolves (2) Sepsis: Leukocytosis in the setting of tachycardia and hypotension concerning for sepsis. Multiple possible etiologies at this time: endocarditis, urosepsis, and cellulitis.CXR was clear ruling out pneumonia. Hx of IV drug use in addition to splinter hemorrhages and possible osler nodes on exam suspicious for endocarditis. TTE showed mild thickening of tricuspid valve, no definite vegetations. Cardiology advised against TANG. Venous doppler was negative for septic emboli, but did show bilateral complex popliteal cysts. Urine culture + gram negative bacillus. Not likely to be source of sepsis since no sign of n ephrosis on Abd CT. Physical exam findings consistent with cellulitis of the nares, possible cellulitis of the L & R malleolus. Face CT revealed mild soft tissue swelling of the nares, no abscess seen. - Vitals have normalized, leukocytosis resolved. - Blood culture showed no growth, preliminary results - Urine culture grew E. coli resistant to Ampicillin but otherwise mcwilliams-sensitive - ID consulted: e business consultant recommends discontinuing broad spectrum coverage, as the patient's initial SIRS-positive criteria in addition to laboratory abnormalities may be due to methamphetamine intoxication - We will follow ID recommendations: - discontinue Azithromycin/Zosyn/Daptomycin - start topical Mupirocin for nasal wing cellulitis - we will keep IVFs on board - follow patient closely for VS changes - plan to re-start abx if develops SIRS criteria again - Continue to monitor CBC daily Sepsis acute organ dysfunction status: unspecified Sepsis type: sepsis due to unspecified organism Qualified Code(s): A41.9 - Sepsis, unspecified organism (3) ESTEFANY (acute kidney injury): Acute Kidney Injury likely secondary to prerenal syndrome in the setting of hypotension due to sepsis. Nephrolithiasis seen on CT w/ no signs of hydronephrosis or obstruction. Cr downtrending 2.14 from 4.64 on admission - Given 2L NS in ED, 1L NS on medicine floor - Continue LR 125 mls/hr - Continue to monitor CMP daily (4) Drug abuse and dependence: Pt has a hx of IV drug use, last hospitalized for IV fentanyl overdose in February 2020. She completed a rehab 03/11/21 and was following with Dr. Moses, who was prescribing pt's Suboxone. Physical exam findings on the L & R. malleolar appear consistent with IV drug use. Urine toxicology + amphetamine/methamphetamine and MDMA. HIV negative, Hep B negative, Hep C negative - Continue to assess pt's interest in rehab (5) Elevated CK: Elevated CK 563 on admission likely secondary to fall and dehydration status, has downtrended to 533. - Continue IV resuscitation (6) Thrombocytopenia: Platelets were 88k on admission. Platelet level during past hospitalization was normal (255k). Thrombocytopenia likely secondary to sepsis, low suspicion of a consumptive coagulopathy since platelet smear showed no increase in schistocytes, PT/INR, fibrinogen, and haptoglobin were all normal. - Continue to monitor with CBC daily (7) Transaminitis: Liver enzymes elevated on admission (AST 96, ALT 150, Alk phos 157). Likely to be secondary to drug overdose or hypotension in the setting of sepsis since liver enzymes are downtrending (AST 90, ALT 166,Alk phos 133). - Continue to monitor with CMP daily (8) DVT prophylaxis: - DVT prophylaxis: heparin - Diet: Regular - Dispo: consider drug rehab, inpt psych if confirmed suicide attempt - Code: full code Admission and Anticipated Discharge Date Admission Date: April 16, 2020 Supervising Attestation I saw the patient along with the medical student and resident physician and I personally conducted a history and exam. She is feeling somewhat more "with it" this morning -more awake and she described herself as being more alert. She denies any pain at rest; she does have some pain of the fingers and the toes with palpation, but these are seemingly without discomfort at rest. Exam 129/77, 62, 18, 36.6, 98% on room air. Affect somewhat flat but she answers the questions appropriately HEENT with small amount of localized erythema left lateral nare. Cardiovascular regular without murmur Lungs clear. Nonlabored respirations Ecchymosis of the anterior knees bilaterally, lateral malleoli bilaterally, and plantar/distal surfaces of the toes. There is no warmth. No calf tenderness appreciated. Data White blood cell count 4.03, hemoglobin 8.9, platelet count 81. BUN 31, creatinine 1.39. AST 43, ALT 74, alkaline phosphatase 149. Venous Doppler showed no DVT in either lower extremity. Arterial study showed normal bilateral ankle-brachial indices. Blood cultures from 04/16 showed no growth Urine culture from 04/16 demonstrates E. coli Assessment Infectious disease consult from today questions if this is pseudosepsis -with the patient's presenting symptoms being retail representative of amphetamine intoxication, noting that both entities share several common signs/symptoms. Transthoracic echocardiogram did not identify a lesion, and transesophageal per cardiology would not add additional information in this case. Blood cultures are negative, and well culture negative endocarditis is a possibility given her history of drug abuse, overall suspicion from our ID e business consultant is low. The patient's thrombocytopenia is not easily explained on the basis of methamphetamine intoxication; her skin lesions appear more ecchymotic though the distribution is peculiar; the findings seem to widespread to be explained on the basis of emboli. Plan De-escalation of antibiotics as recommended by ID Continue to monitor blood count and clinical signs/vital signs Appreciate psychiatric consultation Subjective Overnight, there were no acute events. Today, the patient is doing well. She is much more awake and alert than she has been. She was also more talkative and open about her drug history. She is starting to remember a little bit more about past events, but still does not recall the events that led up to her hospitalization. She did state that she remembered staying up late at night and having difficulty sleeping the week before hospitalization. In regards to her fatigue, she still feels tired and just wants to sleep. Her pain in the nose has gotten better. She is still experiencing the pain in her toes. She has started to ambulate. Lyn was taken out, but she has not urinated yet. She still does not have much of an appetite and has not eaten much of her meals. When asked about rehab, she states that she is still "thinking about it". She mentioned [facility] as a potential rehab site she may be interested in. Review of Systems Constitutional: +fatigue, +myalgias, denies fever, chills Respiratory: denies cough, dyspnea, change in sputum Cardiovascular: Additional Comments: denies chest pain, palpitations, edema Gastrointestinal: denies nausea, vomiting, abdominal pain Genitourinary: denies urinary frequency, urgency, dysuria Musculoskeletal: +finger pain, +toe pain, +knee pain Neurologic: + generalized weakness and + memory loss Psychiatric: denies suicidal and homicidal thoughts Physical Exam Constitutional: comfortable and + lethargic Eyes: PERRL, conjunctivae normal, anicteric sclerae Respiratory: Auscultation: + rales Cardiovascular: RRR, no murmur, no edema Gastrointestinal (Abdomen): normal bowel sounds, soft, nontender, no hepatosplenomegaly Psychiatric: A+Ox3, euthymic affect Results & Data ([facility]) Vital Signs (Past 12 Hours) Vital Signs Temp Pulse Pulse BP Pulse Ox 04/19/20 07:47 71 04/19/20 07:29 36.6 C 77 126/82 96 Resident Activity Tracking Resident Involvement: Resident Care Provided Care Provided: Adult Hospital Medicine
[2020-04-19] MEDS: ONDANSETRON INJ 2 MG/ML 2 ML VIAL IV PRN (20:10)
[2020-04-19] MEDS: MUPIROCIN 2% OINT 22 GM TUBE EXT SCH (20:13)
[2020-04-20] MEDS: LACTATED RINGER'S 1,000 ML IV SCH ×4 (00:36→21:11)
[2020-04-20] MEDS: LEVOTHYROXINE SODIUM 88 MCG TABLET PO SCH (06:08)
[2020-04-20] MEDS: ACETAMINOPHEN 325 MG TAB PO PRN ×2 (06:08→20:24)
[2020-04-20] MEDS: HEPARIN SOD 5,000 UNIT/0.5 ML VIAL SQ SCH ×3 (06:09→20:26)
[2020-04-20 06:26] LABS: Hematocrit (blood only) 25.2 % (37-47); Hemoglobin 8.6 g/dL (12.0-16.0); Mean Corpuscular Hemoglobin 28.9 pg (25-34); Mean Corpuscular Hgb Conc 34.1 g/dL (32-36); Mean Corpuscular Volume 84.6 fL (80-100); RDW Coefficient of Variation 14.6 % (11.5-14.5); RDW Standard Deviation 45.8 fL (36.4-46.3); Red Blood Count 2.98 M/uL (4.2-5.4)
[2020-04-20 06:28] LABS: Mean Platelet Volume 11.6 fL (7.4-10.4); Platelet Count 87 K/uL (130-400)
[2020-04-20 06:52] LABS: Basophils # (auto) 0.02 K/uL (0-0.2); Basophils % (auto) 0.5 %; Eosinophils # (auto) 0.09 K/uL (0-0.5); Eosinophils % (auto) 2.4 %; Giant Platelets 1+; Immature Granulocytes # (auto) 0.12 K/uL (0.00-0.02); Immature Granulocytes % (auto) 3.2 %; Lymphocytes # (auto) 1.35 K/uL (1.2-3.4); Lymphocytes % (auto) 35.5 %; Monocytes # (auto) 0.54 K/uL (0.11-0.59); Monocytes % (auto) 14.2 %; Neutrophils # (auto) 1.68 K/uL (1.4-6.5); Neutrophils % (auto) 44.2 %
[2020-04-20 07:00] LABS: Albumin Level 2.1 gm/dl (3.4-5.0); Calcium 8.6 mg/dl (8.5-10.1); Creatinine Clr Calc Pharmacy 79.8 ml/min; Est GFR (African American) 79.9; Est GFR (Non-African American) 68.9; Magnesium 1.5 mg/dl (1.8-2.4); Phosphorus 3.3 mg/dl (2.5-4.9); Potassium 4.1 mmol/L (3.5-5.1)
[2020-04-20 07:03] LABS: Albumin Globulin Ratio 0.7 (0.9-2); Bilirubin,Total 0.4 mg/dl (0.2-1); Total Protein 5.1 gm/dl (6.4-8.2)
[2020-04-20] MEDS: MUPIROCIN 2% OINT 22 GM TUBE EXT SCH ×3 (07:56→20:19)
--- NOTE | 2020-04-20 09:30 | Hospitalist Progress Note ---
Date of Service April 20, 2020 Assessment & Plan (1) Encephalopathy acute: Mame Palacios is a 39 yo female with h/o IV drug abuse and several associated hospitalizations associated with overdose who was admitted to [facility] on 04/16/2020 for sepsis and concern for drug overdose. Sepsis: leukocytosis in the setting of tachycardia and hypotension concerning for sepsis -VSS, leukocytosis resolved -CXR clear; pneumonia unlikely -h/o IV drug abuse, possible splinter hemorrhages and Osler nodes on exam suspicious for endocarditis; TTE showed no definite vegetations, and ID consult felt PE findings were inconsistent with endocarditis -blood culture showed no growth, preliminary results -venous doppler showed no DVT in either extremity -urine culture grew E. coli resistant to ampicillin but otherwise mcwilliams-sensitive -possible ENT source given PE findings consistent with cellulitis of nares (face CT showed mild soft tissue swelling without abscess), possible sinus infection given opacification of anterior ethmoid air cells and partial opacification of anterior nasal cavity -possible cellulitis of L & R malleoli -ID consult: recommended discontinuing broad spectrum coverage, as the patient's initial SIRS-positive criteria in addition to laboratory abnormalities may be due to methamphetamine intoxication -following ID recommendations: -discontinue azithromycin/zosyn/daptomycin -start topical mupirocin for nasal wing cellulitis -continue IVF -follow patient closely for VS changes - plan to re-start antibiotics if develops SIRS criteria again -CBC qAM Sinus bradycardia -started evening of 04/19, has been ongoing since, denies any lightheadedness, dizziness, confusion -other vitals stable -suspect sequelae of methamphetamine withdrawal syndrome -will continue to monitor Sinus infection -patient complains of significant congestion and facial discomfort -face CT on admission: near-complete opacification of the anterior ethmoid air cells and partial opacification of the anterior nasal cavity -starting augmentin 875mg PO bid for 7 days -consider ENT consult on Wednesday (04/22/2020) AMS: resolved -patient presented with altered mental status, concern for possible overdose of Suboxone, cannot rule out suicide -head CT showed no intracranial abnormality -TSH 16.8 with normal T4 -urine toxicology positive amphetamine/methamphetamine and MDMA -altered mental status likely due to sepsis and/or drug overdose, although patient's continued alteration does not fit the timeline of a drug overdose -suicide precautions ordered, 1:1 -appreciate psychiatry recommendations ESTEFANY: improving -creatinine downtrending -nephrolithiasis on CT w/ no signs of hydronephrosis or obstruction -likely secondary to prerenal syndrome in the setting of hypotension due to sepsis -given 2L NS in ED, 1L NS on medicine floor, responding appropriately -continue LR @ 125 mL/hr -continue to monitor I/Os -trend BMP daily Polysubstance abuse -history of of IV fentanyl use, last hospitalized for overdose in 02/2020 -ecchymosis on R & L lateral malleolus consistent with injection site -HIV (1&2) Ab & P24 Antigen, 4th gen test negative -hep B surface antibody immune, hep B surface antigen neg -hep C negative -plan to ascertain nature of possible overdose as patient improves in mentation, as mentioned above -plan to consult the patient on rehabilitation options as well; patient is agreeable on early conversations Thrombocytopenia: stable -platelets in the high 70s to 90s during current admission -fibrin degradation products >40, LDH 318, haptoglobin wnl -peripheral smear not significant for any increase in schistocytes and spherocytes -thrombocytopenia likely to be secondary to sepsis, low suspicion of a consumptive coagulopathy given no increase in schistocytes and PT/INR/fibrinogen wnl -CBC qAM Hypothyroidism -TSH 16.8 on admission with normal fT4 -continue home dose levothyroxine 88mcg Transaminitis: resolving -AST 96 on admission, downtrending, at 31 today (04/20) -ALT 150 on admission, downtrending, 64 today -alk phos 137 on admission, peak at 153 on 04/18, still slightly elevated but only mildly (132 on 04/20) DVT prophylaxis: heparin 5000u q8h Diet: regular Dispo: med/surg with tele; consider drug rehab, inpt psych if confirmed suicide attempt Code status: full code (2) Sepsis: (3) ESTEFANY (acute kidney injury): (4) Drug abuse and dependence: (5) Elevated CK: (6) Thrombocytopenia: (7) Transaminitis: (8) DVT prophylaxis: Admission and Anticipated Discharge Date Admission Date: April 16, 2020 Supervising Physician Co-Signing Physician Notes I also saw the patient concur with the resident physician and confirmed begum portions of the history and physical examination. I agree with the impression and plan as discussed and documented in the resident note; this is also summarized below. Upon exam, she is sleeping but easily awakens to voice. She sounds nasally when speaking and accordingly her complaint today is of nasal and sinus pressure. She reports if she is sitting up she will get rather thick discharge out of the naris bilaterally; she reports that this is blood tinged. Exam 115/76, 65, 18, 36.5 C, pulse oximetry 97% on room air Nursing notes some bradycardia when the patient is sleeping (44) Affect somewhat flat but she answers the questions appropriately HEENT: She sounds congested. The erythema noted yesterday on the left nare has decreased Cardiovascular regular without murmur Lungs clear. Nonlabored respirations Ecchymosis of the anterior knees bilaterally, lateral malleoli bilaterally, and plantar/distal surfaces of the toes. There is no warmth. No calf tenderness appreciated. Data White blood cell count 3.8L, hemoglobin 8.6, platelet count 87. BUN 22, creatinine 1.03. AST 31, ALT 64, alkaline phosphatase 132. Venous Doppler showed no DVT in either lower extremity. Arterial study showed normal bilateral ankle-brachial indices. Blood cultures from 04/16 showed no growth Urine culture from 04/16 demonstrates E. coli Assessment Questionable sepsis versus methamphetamine withdrawal Episodic sinus bradycardia, without symptoms Sinus infection Encephalopathy, resolved Hypothyroidism with elevated TSH (in setting of acute illness), normal free T4 Acute kidney injury, improving Thrombocytopenia, stable and slight improvement today. Transaminitis, resolving. Plan Augmentin 875 mg PO BID Consider ENT consult CBC in AM, and will add CRP, ESR Continue to monitor blood count and clinical signs/vital signs Appreciate psychiatric consultation Subjective Patient seen at bedside this morning. She reports feeling well overall and has no acute complaints. Slept well overnight. Endorses nasal pain as well as some tenderness of the bruises on her feet and ankles that has improved since yesterday. Denies CP, SOB, headache, palpitations, fever, chills, weakness, lightheadedness, nausea, vomiting, or other symptoms. Review of Systems Review of Systems: see HPI Physical Exam Constitutional: cooperative; no acute distress Respiratory: normal respiratory effort, lungs clear to auscultation Cardiovascular: Rate/Rhythm: regular rhythm and + bradycardic Heart Sounds: normal S1 and normal S2; no murmur trade pitting edema of the ankles bilaterally Gastrointestinal (Abdomen): normal bowel sounds, soft, nontender, no hepatosplenomegaly Skin: mildly tender ecchymosis of lateral malleoli bilaterally, mildly tender ecchymosis of sole of feet and tips of toes bilaterally, dark mildly tender lesions under fingernails bilaterally Results & Data Results & Data ([facility]) Vital Signs (Past 12 Hours) Vital Signs Temp Pulse Pulse Resp BP Pulse Ox 04/20/20 07:24 44 L 04/20/20 07:22 36.3 C L 82 18 123/79 93 04/20/20 03:26 36.3 C L 60 20 118/75 96 04/20/20 00:00 52 L 04/19/20 23:07 36.3 C L 65 18 120/76 96 Resident Activity Tracking Resident Involvement: Resident Care Provided Care Provided: Adult Hospital Medicine (1) Sepsis Sepsis acute organ dysfunction status: unspecified Sepsis type: sepsis due to unspecified organism Qualified Code(s): A41.9 - Sepsis, unspecified organism
[2020-04-20] MEDS: ONDANSETRON INJ 2 MG/ML 2 ML VIAL IV PRN ×3 (12:05→20:24)
[2020-04-20 14:07] LABS: Amphetamine Urine, Confirm 7990 ng/mL (<250); MDA negative; MDEA negative; MDMA (Ecstasy) Urine, Confirm negative; Methamphetamine, Ur Confirm >15000 ng/mL (<250)
[2020-04-20] MEDS: AMOXICILLIN/CLAVULANATE 875 MG TAB PO SCH (15:59)
[2020-04-21] MEDS: ACETAMINOPHEN 325 MG TAB PO PRN ×2 (00:53→20:25)
[2020-04-21] MEDS: LACTATED RINGER'S 1,000 ML IV SCH ×3 (04:59→20:27)
[2020-04-21] MEDS: LEVOTHYROXINE SODIUM 88 MCG TABLET PO SCH (05:58)
[2020-04-21] MEDS: HEPARIN SOD 5,000 UNIT/0.5 ML VIAL SQ SCH ×3 (05:58→21:00)
[2020-04-21 06:27] LABS: Hematocrit (blood only) 25.6 % (37-47); Hemoglobin 8.7 g/dL (12.0-16.0); Mean Corpuscular Hemoglobin 28.5 pg (25-34); Mean Corpuscular Volume 83.9 fL (80-100); Mean Platelet Volume 12.1 fL (7.4-10.4); Platelet Count 141 K/uL (130-400); RDW Coefficient of Variation 14.4 % (11.5-14.5); Red Blood Count 3.05 M/uL (4.2-5.4); White Blood Count 5.14 K/uL (4.8-10.8)
[2020-04-21 06:53] LABS: Basophils # (auto) 0.02 K/uL (0-0.2); Basophils % (auto) 0.4 %; Eosinophils # (auto) 0.11 K/uL (0-0.5); Eosinophils % (auto) 2.1 %; Immature Granulocytes # (auto) 0.31 K/uL (0.00-0.02); Lymphocytes # (auto) 1.67 K/uL (1.2-3.4); Lymphocytes % (auto) 32.5 %; Monocytes # (auto) 0.64 K/uL (0.11-0.59); Monocytes % (auto) 12.5 %; Neutrophils # (auto) 2.39 K/uL (1.4-6.5); Neutrophils % (auto) 46.5 %
[2020-04-21 06:54] LABS: Albumin Level 2.1 gm/dl (3.4-5.0); BUN Creatinine Ratio 16.8 (10-20); Calcium 8.4 mg/dl (8.5-10.1); Creatinine Clr Calc Pharmacy 80.6 ml/min; Est GFR (African American) 80.8; Est GFR (Non-African American) 69.7; Potassium 3.7 mmol/L (3.5-5.1)
[2020-04-21 06:58] LABS: Albumin Globulin Ratio 0.7 (0.9-2); Bilirubin,Total 0.5 mg/dl (0.2-1); C Reactive Protein 2.94 mg/dl (0-0.29); Globulin 3.1 gm/dl (2.5-4.0); Total Protein 5.2 gm/dl (6.4-8.2)
[2020-04-21] MEDS: AMOXICILLIN/CLAVULANATE 875 MG TAB PO SCH ×2 (07:57→16:38)
[2020-04-21] MEDS: MUPIROCIN 2% OINT 22 GM TUBE EXT SCH ×3 (07:57→20:25)
--- NOTE | 2020-04-21 11:04 | Hospitalist Progress Note ---
Date of Service April 21, 2020 Assessment & Plan (1) Encephalopathy acute: Mame Palacios is a 39 yo female with h/o IV drug abuse and several associated hospitalizations associated with overdose who was admitted to [facility] on 04/16/2020 for sepsis and concern for drug overdose. Sepsis - leukocytosis and lactic acidosis in the setting of tachycardia/hypotension initially concerning for sepsis, elevated CRP 2.94 today supports acute inflammation 2/2 this - ID consult 04/19: recommended discontinuing broad spectrum coverage, as the patient's initial SIRS-positive criteria in addition to laboratory abnormalities may be due to methamphetamine intoxication -following ID recommendations: - discontinued azithromycin/zosyn/daptomycin - started topical mupirocin for nasal wing cellulitis - started Augmentin for possible sinus infection - see below - continue IVF - follow patient closely for VS changes - plan to re-start antibiotics if develops SIRS criteria again - patient remains hemodynamically stable/afebrile w/o broad spectrum abx - trend CBC daily Sinus bradycardia - denies any lightheadedness, dizziness, confusion; other VS stable/WNL; EKG 04/21 confirming sinus bradycardia w/o abnormalities - suspect sequelae of methamphetamine withdrawal syndrome - will continue to monitor on tele Acute Rhinosinusitis - patient complains of significant congestion and facial discomfort; face CT showed opacification of several sinuses - suspect acute bacterial rhinosinusitis - continue Augmentin 875/125mg PO BID x7 days (today is 04/28) - consider ENT consult on Wednesday (04/22/2020) Positive Urine Culture - denies previous or current urinary symptoms but urine cx positive for E-coli and lactobacillus - suspect sample contaminant vs asymptomatic bacteriuria - ID on board as above, appreciate recs: will not treat for UTI Polysubstance abuse - history of of IV fentanyl use, last hospitalized for overdose in 02/2020 - ecchymosis on R & L lateral malleolus consistent with injection site - HIV (1&2) Ab & P24 Antigen, 4th gen test negative; hep B surface antibody immune, hep B surface antigen neg; hep C negative - patient denies past or present SI/intential drug OD - patient amenable to considering inpatient rehabilitation options - consulted CM to assist with options AMS, resolved - suspect 2/2 due to sepsis vs drug overdose - continue to monitor clinically ESTEFANY, resolved - suspect pre-renal injury 2/2 sepsis vs dehydration - continues to report low fluid intake - continue LR @ 125 mL/hr - strict I/Os - trend BMP daily Thrombocytopenia, resolved - plts initally 70s-100s and fibrin degradation products >40, LDH 318, haptoglobin/fibrinogen WNL, smear w/o schistocytes - thrombocytopenia likely to be secondary to sepsis, low suspicion of a consumptive coagulopathy - resolved after 2-3 days - trend CBC daily Transaminitis, resolved - suspect inadequate hepatic perfusion 2/2 sepsis/dehydration, meth intoxication and possible Suboxone OD may have also contributed - continue to trend LFTs Hypothyroidism - continue home dose Synthroid 88mcg DVT prophylaxis: Heparin 5000u SQ q8h Diet: Regular Dispo: med/surg with tele; consider drug rehab options on discharge Code status: full code (2) Sepsis: (3) ESTEFANY (acute kidney injury): (4) Drug abuse and dependence: (5) Elevated CK: (6) Thrombocytopenia: (7) Transaminitis: (8) DVT prophylaxis: Admission and Anticipated Discharge Date Admission Date: April 16, 2020 Supervising Physician Co-Signing Physician Notes I also saw the patient with the resident physician and confirmed begum portions of the history and physical examination. I agree with the impression and plan as discussed and documented in the resident note; this is also summarized below. She is awake and alert. She just about to eat her lunch. She is conversational/interactive. She planes of nasal congestion and pressure. Exam 133/76, 60, 20, 36.6, 97% on room air. HEENT: She sounds congested. The right nare is obstructed by what looks to be hard, blood tinged mucus. The left nare itself is patent with mild nonobstructive nasal turbinate hypertrophy. There is a small area of erythema at the site of a previous piercing, left nare. I am unable to appreciate a septal defect. Cardiovascular regular without murmur Lungs clear. Nonlabored respirations Ecchymosis of the anterior knees bilaterally, lateral malleoli bilaterally, and plantar/distal surfaces of the toes. There is no warmth. No calf tenderness appreciated. Data White blood cell count 5.14, hemoglobin 8.7, platelet count 141. BUN 17, creatinine 1.02. AST 22, ALT 51, alkaline phosphatase 118. CRP 2.94, ESR 17. Assessment Questionable sepsis versus methamphetamine withdrawal Episodic sinus bradycardia, without symptoms (suspect methamphetamine withdrawal, less likely under supplemented hypothyroidism). Sinus infection Encephalopathy, resolved Hypothyroidism with elevated TSH (in setting of acute illness), normal free T4 Acute kidney injury, improving Thrombocytopenia, resolved. Transaminitis, resolving. Plan Augmentin 875 mg PO BID Consider ENT consult on Wednesday Continue to monitor blood count and clinical signs/vital signs Appreciate psychiatric consultation Subjective No acute events overnight. Patient continues reports improvement in left lateral nasal pain as well as toe pain, although she reports persistent tingling at the tips of her fingers. Reports minor improvement in nasal congestion. Denies chest, SOB, lightheadedness, nausea, vomiting, or abdominal pain. Review of Systems Review of Systems: Pertinent positives and negatives mentioned in HPI. Physical Exam Physical Exam: General: A&Ox4. NAD. Cooperative. HEENT: Mild swelling of left nasal wing without erythema and with mild TTP, left nasal turbinate pink/patent, right turbinate pink but swollen with overlying dried blood Pulm: CTAB A&P. -wheezes, -rales, -rhonchi. Symmetrical chest rise. No increase work of breathing. No respiratory distress. Cardiac: RRR, -mrg. Radial pulses intact and symmetrical. Abdominal: soft, non-tender, non-distended, BS x 4 Skin: ecchymoses vs splinter hemorrhages under most fingernails, bilateral ecchymoses near lateral malleoli, non-blanching erythematous toes - all stable findings Results & Data Results & Data ([facility]) Vital Signs (Past 12 Hours) Vital Signs Temp Pulse Pulse Resp BP Pulse Ox 04/21/20 07:42 36.5 C 50 L 20 134/76 97 04/21/20 07:20 47 L 04/21/20 04:00 36.4 C L 54 L 18 133/77 96 04/21/20 01:25 83 04/21/20 00:00 36.6 C 43 L 18 133/74 97 Resident Activity Tracking Resident Involvement: Resident Care Provided Care Provided: Adult Hospital Medicine (1) Sepsis Sepsis acute organ dysfunction status: unspecified Sepsis type: sepsis due to unspecified organism Qualified Code(s): A41.9 - Sepsis, unspecified organism
--- NOTE | 2020-04-21 12:39 | Electrocardiogram Report ---
Test Reason : Blood Pressure : / mmHG Vent. Rate : 052 BPM Atrial Rate : 052 BPM P-R Int : 112 ms QRS Dur : 084 ms QT Int : 456 ms P-R-T Axes : 061 058 043 degrees QTc Int : 424 ms Sinus bradycardia Low voltage QRS Borderline ECG When compared with ECG of 17-APR-2020 06:32, Vent. rate has decreased BY 50 BPM Confirmed by Amos Feliz ([id number]) on 04/21/2020 12:39:36 PM Referred By: REFERRED SELF Confirmed By:Amos Feliz
[2020-04-21] MEDS: ONDANSETRON INJ 2 MG/ML 2 ML VIAL IV PRN ×3 (12:51→20:23)
[2020-04-22] MEDS: ACETAMINOPHEN 325 MG TAB PO PRN ×3 (00:28→20:37)
[2020-04-22] MEDS: LACTATED RINGER'S 1,000 ML IV SCH (04:05)
[2020-04-22] MEDS: HEPARIN SOD 5,000 UNIT/0.5 ML VIAL SQ SCH ×3 (05:06→21:22)
[2020-04-22] MEDS: LEVOTHYROXINE SODIUM 88 MCG TABLET PO SCH (05:07)
[2020-04-22 06:19] LABS: Hematocrit (blood only) 25.1 % (37-47); Hemoglobin 8.8 g/dL (12.0-16.0); Mean Corpuscular Hemoglobin 29.3 pg (25-34); Mean Corpuscular Hgb Conc 35.1 g/dL (32-36); Mean Corpuscular Volume 83.7 fL (80-100); Mean Platelet Volume 11.9 fL (7.4-10.4); Platelet Count 199 K/uL (130-400); RDW Coefficient of Variation 14.3 % (11.5-14.5); RDW Standard Deviation 43.3 fL (36.4-46.3); White Blood Count 6.09 K/uL (4.8-10.8)
[2020-04-22 06:49] LABS: Albumin Level 2.2 gm/dl (3.4-5.0); BUN Creatinine Ratio 14.2 (10-20); Calcium 8.1 mg/dl (8.5-10.1); Creatinine Clr Calc Pharmacy 95.1 ml/min; Est GFR (African American) 95.3; Est GFR (Non-African American) 82.2; Potassium 3.4 mmol/L (3.5-5.1)
[2020-04-22] MEDS ORDERED: POTASSIUM CHLORIDE CRTAB 20 MEQ TABCR PO STA (06:51)
[2020-04-22 06:52] LABS: Albumin Globulin Ratio 0.8 (0.9-2); Bilirubin,Total 0.5 mg/dl (0.2-1); Globulin 2.8 gm/dl (2.5-4.0)
[2020-04-22 07:18] LABS: Basophils # (auto) 0.02 K/uL (0-0.2); Basophils % (auto) 0.3 %; Eosinophils # (auto) 0.12 K/uL (0-0.5); Immature Granulocytes # (auto) 0.41 K/uL (0.00-0.02); Immature Granulocytes % (auto) 6.7 %; Lymphocytes # (auto) 1.72 K/uL (1.2-3.4); Lymphocytes % (auto) 28.2 %; Monocytes # (auto) 0.66 K/uL (0.11-0.59); Monocytes % (auto) 10.8 %; Neutrophils # (auto) 3.16 K/uL (1.4-6.5); Ovalocytes 1+; Poikilocytosis Present
[2020-04-22] MEDS: AMOXICILLIN/CLAVULANATE 875 MG TAB PO SCH ×2 (08:36→17:43)
[2020-04-22] MEDS: MUPIROCIN 2% OINT 22 GM TUBE EXT SCH ×3 (08:36→20:35)
--- NOTE | 2020-04-22 11:19 | Hospitalist Progress Note ---
Date of Service April 22, 2020 Assessment & Plan (1) Encephalopathy acute: Mame Palacios is a 39 yo female with h/o IV drug abuse and several associated hospitalizations associated with overdose who was admitted to [facility] on 04/16/2020 for sepsis and concern for drug overdose. Sepsis - leukocytosis and lactic acidosis in the setting of tachycardia/hypotension initially concerning for sepsis, elevated CRP 2.94 today supports acute inflammation 2/2 this - ID consult 04/19: followed recs to d/c broad-spectrum abx coverage - continue Augmentin for possible sinus infection - see below - d/c'd IVFs today as patient has improved PO intake - patient remains hemodynamically stable/afebrile w/o broad spectrum abx - trend CBC daily Polysubstance abuse - history of of IV fentanyl use, last hospitalized for overdose in 02/2020 - ecchymosis on R & L lateral malleolus consistent with injection site - HIV (1&2) Ab & P24 Antigen, 4th gen test negative; hep B surface antibody immune, hep B surface antigen neg; hep C negative - patient denies past or present SI/intential drug OD - patient amenable to considering inpatient rehabilitation options - consulted CM to assist with options Sinus bradycardia - denies any lightheadedness, dizziness, confusion; other VS stable/WNL; EKG 04/21 confirming sinus bradycardia w/o abnormalities - suspect sequelae of methamphetamine withdrawal syndrome - continue to monitor on tele Acute Rhinosinusitis - patient complains of significant congestion and facial discomfort; face CT showed opacification of several sinuses - suspect acute bacterial rhinosinusitis - continue Augmentin 875/125mg PO BID x7 days (today is 05/26) Shortness of Breath - occasional temporary SOB at night - reports h/o possible PATRICK sx - consider sleep study as outpatient Positive Urine Culture - denies previous or current urinary symptoms but urine cx positive for E-coli and lactobacillus - suspect sample contaminant vs asymptomatic bacteriuria - ID on board as above, appreciate recs: will not treat for UTI Hypothyroidism - continue home dose Synthroid 88mcg DVT prophylaxis: Heparin 5000u SQ q8h Diet: Regular Dispo: med/surg with tele; dispo pending rehab options per CM Code status: full code (2) Sepsis: (3) ESTEFANY (acute kidney injury): (4) Drug abuse and dependence: (5) Elevated CK: (6) Thrombocytopenia: (7) Transaminitis: (8) DVT prophylaxis: Admission and Anticipated Discharge Date Admission Date: April 16, 2020 Supervising Physician Co-Signing Physician Notes I personally examined the patient and verified all begum points of history and exam, discussed case, and agree with decision making with Dr Meng feeling better overall. does note off and on sob - seems to mostly been when resting - short lived - lasts less than 5 mins. no cough no wheeze just feels dyspnic - spontaneous onset//spontaneous resolution. no other associated s/s otherwise notes that she would like to go to rehab if possible - case management working on assisting with this vitals noted nad heent nc at mmm breathing unlabored no accessory muscles good effort SIRS - appearing from methamphetamine being part of polysubstance OD. after further review no infections identified. stable. polysubstance abuse - working on rehab options dyspnea - ?PATRICK, anxiety from situation? no s/s pneumonia/pneumothorax. no tachycardia/no DVT/on heparin SQ/no hypoxia/low prob by wells' all plead heavily against PE. follow clinically otherwise as above Subjective No acute events overnight. Patient reports improvement in left lateral nasal pain as well as toe pain. Reports minor improvement in nasal congestion. Still reports inadequate fluid intake but is eating without issues. Also reports several episodes last night during which she wakes up mildly short of breath - resolves within several minutes. Reports h/o snoring and possible apneic episodes while sleeping. Denies chest pain, lightheadedness, nausea, vomiting, or abdominal pain. Review of Systems Review of Systems: Pertinent positives and negatives mentioned in HPI. Physical Exam Physical Exam: General: A&Ox4. NAD. Cooperative. HEENT: Mild swelling of left nasal wing without erythema and with mild TTP, improved Pulm: CTAB A&P. -wheezes, -rales, -rhonchi. Symmetrical chest rise. No increase work of breathing. No respiratory distress. Cardiac: RRR, -mrg. Radial pulses intact and symmetrical. Abdominal: soft, non-tender, non-distended, BS x 4 Skin: ecchymoses vs splinter hemorrhages under most fingernails, bilateral ecchymoses near lateral malleoli, non-blanching erythematous toes - all stable findings Results & Data Results & [facility] ([facility]) Vital Signs (Past 12 Hours) Vital Signs Temp Pulse Pulse Resp BP Pulse Ox 04/22/20 08:30 67 04/22/20 07:39 36.7 C 67 18 149/84 H 92 04/22/20 04:27 37.4 C 53 L 18 146/83 H 95 Resident Activity Tracking Resident Involvement: Resident Care Provided Care Provided: Adult Hospital Medicine (1) Sepsis Sepsis acute organ dysfunction status: unspecified Sepsis type: sepsis due to unspecified organism Qualified Code(s): A41.9 - Sepsis, unspecified organism
[2020-04-22] MEDS: ONDANSETRON INJ 2 MG/ML 2 ML VIAL IV PRN (14:52)
[2020-04-22] MEDS: GABAPENTIN 600 MG TAB PO SCH ×2 (15:38→20:36)
--- NOTE | 2020-04-22 15:55 | Billing Data ---
Date of Service April 22, 2020 Coding Level of Care Code 42463 Subseq Hosp Care Lvl 3
[2020-04-22] MEDS ORDERED: SODIUM CHLORIDE 0.65% NA SOLN 45 ML (OCEAN) PRN (20:42)
[2020-04-23] MEDS: LEVOTHYROXINE SODIUM 88 MCG TABLET PO SCH (05:19)
[2020-04-23] MEDS: HEPARIN SOD 5,000 UNIT/0.5 ML VIAL SQ SCH ×3 (05:19→21:15)
[2020-04-23] MEDS: ACETAMINOPHEN 325 MG TAB PO PRN ×2 (05:47→18:43)
[2020-04-23 08:32] LABS: Albumin Globulin Ratio 0.7 (0.9-2); Albumin Level 2.2 gm/dl (3.4-5.0); BUN Creatinine Ratio 7.8 (10-20); Bilirubin,Total 0.4 mg/dl (0.2-1); C Reactive Protein 1.27 mg/dl (0-0.29); Calcium 7.9 mg/dl (8.5-10.1); Creatinine Clr Calc Pharmacy 97.2 ml/min; Est GFR (African American) 97.9; Est GFR (Non-African American) 84.5; Globulin 3.1 gm/dl (2.5-4.0); Potassium 3.5 mmol/L (3.5-5.1); Total Protein 5.3 gm/dl (6.4-8.2)
[2020-04-23 08:35] LABS: Basophils # (auto) 0.02 K/uL (0-0.2); Basophils % (auto) 0.3 %; Eosinophils # (auto) 0.12 K/uL (0-0.5); Eosinophils % (auto) 1.5 %; Hematocrit (blood only) 28.2 % (37-47); Hemoglobin 9.7 g/dL (12.0-16.0); Immature Granulocytes # (auto) 0.24 K/uL (0.00-0.02); Immature Granulocytes % (auto) 3.1 %; Lymphocytes # (auto) 1.33 K/uL (1.2-3.4); Lymphocytes % (auto) 17.1 %; Mean Corpuscular Hgb Conc 34.4 g/dL (32-36); Mean Corpuscular Volume 84.4 fL (80-100); Monocytes # (auto) 0.87 K/uL (0.11-0.59); Monocytes % (auto) 11.2 %; Neutrophils % (auto) 66.8 %; Platelet Count 341 K/uL (130-400); RDW Coefficient of Variation 14.7 % (11.5-14.5); Red Blood Count 3.34 M/uL (4.2-5.4); White Blood Count 7.78 K/uL (4.8-10.8)
[2020-04-23] MEDS: MUPIROCIN 2% OINT 22 GM TUBE EXT SCH ×3 (08:36→21:14)
[2020-04-23] MEDS: GABAPENTIN 600 MG TAB PO SCH ×2 (08:37→21:15)
[2020-04-23] MEDS: AMOXICILLIN/CLAVULANATE 875 MG TAB PO SCH ×2 (08:37→17:04)
[2020-04-23] MEDS: lisinopril 20 MG TAB PO SCH (12:25)
--- NOTE | 2020-04-23 12:45 | Hospitalist Progress Note ---
Date of Service April 23, 2020 Assessment & Plan (1) Encephalopathy acute: Mame Palacios is a 39 yo female with h/o IV drug abuse and several associated hospitalizations associated with overdose who was admitted to [facility] on 04/16/2020 for sepsis and concern for drug overdose. SIRS - leukocytosis and lactic acidosis in the setting of tachycardia/hypotension initially concerning for sepsis, elevated CRP 2.94 today supports acute inflammation / this - ID consult 04/19: followed recs to d/c broad-spectrum abx coverage - continue Augmentin for possible sinus infection - see below - patient remains hemodynamically stable/afebrile w/o broad spectrum abx - trend CBC daily Polysubstance abuse - history of of IV fentanyl use, last hospitalized for overdose in 02/2020 - ecchymosis on R & L lateral malleolus consistent with injection site - HIV (1&2) Ab & P24 Antigen, 4th gen test negative; hep B surface antibody immune, hep B surface antigen neg; hep C negative - patient denies past or present SI/intential drug OD - tentative discharge to [facility] (inpatient drug rehab) on 04/25 Acute Rhinosinusitis - patient complains of significant congestion and facial discomfort; face CT showed opacification of several sinuses - suspect acute bacterial rhinosinusitis - continue Augmentin 875/125mg PO BID x7 days (today is 06/26) Shortness of Breath - occasional temporary SOB at night - reports h/o possible PATRICK sx - consider sleep study as outpatient Sinus bradycardia, resolving - denies any lightheadedness, dizziness, confusion; other VS stable/WNL; EKG 04/21 confirming sinus bradycardia w/o abnormalities - HR now >60bpm - suspect sequelae of methamphetamine withdrawal syndrome - continue to monitor on tele Hypothyroidism - continue home dose Synthroid 88mcg DVT prophylaxis: Heparin 5000u SQ q8h Diet: Regular Dispo: med/surg with tele; tentative discharge to [facility] drug rehab on 04/25 Code status: full code (2) Sepsis: (3) ESTEFANY (acute kidney injury): (4) Drug abuse and dependence: (5) Elevated CK: (6) Thrombocytopenia: (7) Transaminitis: (8) DVT prophylaxis: Admission and Anticipated Discharge Date Admission Date: April 16, 2020 Supervising Physician Co-Signing Physician Notes I personally examined the patient and verified all begum points of history and exam, discussed case, and agree with decision making with Dr Meng feeling ok just very tired. for rehab - [facility] on 04/25 vitals noted nad heent nc at mmm breathing unlabored no accessory muscles good effort SIRS - appearing from methamphetamine being part of polysubstance OD. after further review no infections identified. stable. no new findings identified polysubstance abuse - for [facility]/ dyspnea - has not recurred. ?PATRICK, anxiety from situation? no s/s pneumonia/pneumothorax. no tachycardia/no DVT/on heparin SQ/no hypoxia/low prob by wells' all plead heavily against PE. follow clinically otherwise as above Subjective No acute events overnight. Patient reports improvement in left lateral nasal pain as well as toe pain. Reports minor improvement in nasal congestion. Reports improved PO intake as well. Denies fever/chills, headache, chest pain, SOB, lightheadedness, nausea, vomiting, or abdominal pain. Review of Systems Review of Systems: Pertinent positives and negatives mentioned in HPI. Physical Exam Physical Exam: General: A&Ox4. NAD. Cooperative. HEENT: Mild swelling of left nasal wing without erythema and with mild TTP, improved Pulm: CTAB A&P. -wheezes, -rales, -rhonchi. Symmetrical chest rise. No increase work of breathing. No respiratory distress. Cardiac: RRR, -mrg. Radial pulses intact and symmetrical. Abdominal: soft, non-tender, non-distended, BS x 4 Skin: ecchymoses vs splinter hemorrhages under most fingernails, bilateral ecchymoses near lateral malleoli, non-blanching erythematous toes - all stable findings Results & Data Results & Data ([facility]) Vital Signs (Past 12 Hours) Vital Signs Temp Pulse Resp BP Pulse Ox 04/23/20 11:16 36.9 C 70 20 126/77 94 04/23/20 07:20 36.8 C 75 20 149/90 H 96 Resident Activity Tracking Resident Involvement: Resident Care Provided Care Provided: Adult Hospital Medicine (1) Sepsis Sepsis acute organ dysfunction status: unspecified Sepsis type: sepsis due to unspecified organism Qualified Code(s): A41.9 - Sepsis, unspecified organism
--- NOTE | 2020-04-23 18:34 | Billing Data ---
Date of Service April 23, 2020 Coding Level of Care Code 32280 Subseq Hosp Care Lvl 2
[2020-04-24] MEDS: ACETAMINOPHEN 325 MG TAB PO PRN ×2 (01:14→05:57)
[2020-04-24 05:39] LABS: Basophils # (auto) 0.01 K/uL (0-0.2); Basophils % (auto) 0.2 %; Eosinophils # (auto) 0.14 K/uL (0-0.5); Eosinophils % (auto) 2.3 %; Hematocrit (blood only) 26.5 % (37-47); Hemoglobin 9.3 g/dL (12.0-16.0); Immature Granulocytes # (auto) 0.06 K/uL (0.00-0.02); Lymphocytes # (auto) 1.56 K/uL (1.2-3.4); Lymphocytes % (auto) 25.3 %; Mean Corpuscular Hemoglobin 29.3 pg (25-34); Mean Corpuscular Hgb Conc 35.1 g/dL (32-36); Mean Corpuscular Volume 83.6 fL (80-100); Mean Platelet Volume 10.5 fL (7.4-10.4); Monocytes # (auto) 0.77 K/uL (0.11-0.59); Monocytes % (auto) 12.5 %; Neutrophils # (auto) 3.62 K/uL (1.4-6.5); Neutrophils % (auto) 58.7 %; Platelet Count 408 K/uL (130-400); RDW Coefficient of Variation 14.7 % (11.5-14.5); RDW Standard Deviation 44.3 fL (36.4-46.3); Red Blood Count 3.17 M/uL (4.2-5.4); White Blood Count 6.16 K/uL (4.8-10.8)
[2020-04-24] MEDS: HEPARIN SOD 5,000 UNIT/0.5 ML VIAL SQ SCH ×3 (05:54→21:38)
[2020-04-24] MEDS: LEVOTHYROXINE SODIUM 88 MCG TABLET PO SCH (05:57)
[2020-04-24 06:11] LABS: BUN Creatinine Ratio 8.1 (10-20); Calcium 7.9 mg/dl (8.5-10.1); Creatinine Clr Calc Pharmacy 108.5 ml/min; Est GFR (African American) 111.8; Est GFR (Non-African American) 96.4; Potassium 3.7 mmol/L (3.5-5.1)
[2020-04-24] MEDS: CHOLECALCIFEROL 1,000 UNITS 25 MCG TAB PO SCH (08:37)
[2020-04-24] MEDS: AMOXICILLIN/CLAVULANATE 875 MG TAB PO SCH ×2 (08:38→17:32)
[2020-04-24] MEDS: lisinopril 20 MG TAB PO SCH (08:38)
[2020-04-24] MEDS: GABAPENTIN 600 MG TAB PO SCH ×2 (08:38→21:37)
[2020-04-24] MEDS: MUPIROCIN 2% OINT 22 GM TUBE EXT SCH ×3 (08:39→20:40)
[2020-04-24] MEDS: IBUPROFEN 200 MG TAB PO PRN ×2 (12:31→18:11)
--- NOTE | 2020-04-24 12:51 | Hospitalist Progress Note ---
Date of Service April 24, 2020 Assessment & Plan (1) Encephalopathy acute: Mame Palacios is a 39 yo female with h/o IV drug abuse and several associated hospitalizations associated with overdose who was admitted to [facility] on 04/16/2020 for sepsis and concern for drug overdose. SIRS - leukocytosis and lactic acidosis in the setting of tachycardia/hypotension initially concerning for sepsis, elevated CRP 2.94 today supports acute inflammation 2/ this - ID consult 04/19: followed recs to d/c broad-spectrum abx coverage - continue Augmentin for possible sinus infection - see below - patient remains hemodynamically stable/afebrile w/o broad spectrum abx - trend CBC daily Polysubstance abuse - history of of IV fentanyl use, last hospitalized for overdose in 02/2020 - ecchymosis on R & L lateral malleolus consistent with injection site - HIV (1&2) Ab & P24 Antigen, 4th gen test negative; hep B surface antibody immune, hep B surface antigen neg; hep C negative - patient denies past or present SI/intential drug OD - tentative discharge to [facility] (inpatient drug rehab) on 04/25 Acute Rhinosinusitis - patient complains of significant congestion and facial discomfort; face CT showed opacification of several sinuses - suspect acute bacterial rhinosinusitis - continue Augmentin 875/125mg PO BID x7 days (today is 07/26) Shortness of Breath - occasional temporary SOB at night - reports h/o possible PATRICK sx - consider sleep study as outpatient Sinus bradycardia, resolving - denies any lightheadedness, dizziness, confusion; other VS stable/WNL; EKG 04/21 confirming sinus bradycardia w/o abnormalities - HR now >60bpm - suspect sequelae of methamphetamine withdrawal syndrome - continue to monitor on tele Hypothyroidism - continue home dose Synthroid 88mcg DVT prophylaxis: Heparin 5000u SQ q8h Diet: Regular Dispo: med/surg with tele; tentative discharge to [facility] drug rehab on 04/25 Code status: full code (2) Sepsis: (3) ESTEFANY (acute kidney injury): (4) Drug abuse and dependence: (5) Elevated CK: (6) Thrombocytopenia: (7) Transaminitis: (8) DVT prophylaxis: Admission and Anticipated Discharge Date Admission Date: April 16, 2020 Supervising Physician Co-Signing Physician Notes I personally examined the patient and verified all begum points of history and exam, discussed case, and agree with decision making with Dr Meng. sleeping comfortably vitals noted nad heent nc at breathing unlabored skin no pallor polysubstance OD -recovered -for rehab tomorrow Subjective No acute events overnight. Reports good PO intake. Denies fever/chills, headache, chest pain, SOB, lightheadedness, nausea, vomiting, or abdominal pain. Review of Systems Review of Systems: Pertinent positives and negatives mentioned in HPI. Physical Exam Physical Exam: General: A&Ox4. NAD. Cooperative. HEENT: Mild swelling of left nasal wing without erythema and with mild TTP, improved Pulm: CTAB A&P. -wheezes, -rales, -rhonchi. Symmetrical chest rise. No increase work of breathing. No respiratory distress. Cardiac: RRR, -mrg. Radial pulses intact and symmetrical. Abdominal: soft, non-tender, non-distended, BS x 4 Skin: ecchymoses vs splinter hemorrhages under most fingernails resolving, bilateral ecchymoses near lateral malleoli markedly improved, non-blanching erythematous toes resolving Results & Data Results & Data ([facility]) Vital Signs (Past 12 Hours) Vital Signs Temp Pulse Resp BP Pulse Ox 04/24/20 07:36 37.4 C 68 18 133/81 95 Resident Activity Tracking Resident Involvement: Resident Care Provided Care Provided: Adult Hospital Medicine (1) Sepsis Sepsis type: sepsis due to unspecified organism Sepsis acute organ dysfunction status: unspecified Qualified Code(s): A41.9 - Sepsis, unspecified organism
--- NOTE | 2020-04-24 16:41 | Billing Data ---
Date of Service April 24, 2020 Coding Level of Care Code 45390 Subseq Hosp Care Lvl 1
[2020-04-25] MEDS: IBUPROFEN 200 MG TAB PO PRN ×3 (00:37→16:03)
[2020-04-25] MEDS: ACETAMINOPHEN 325 MG TAB PO PRN ×2 (05:02→21:18)
[2020-04-25] MEDS: HEPARIN SOD 5,000 UNIT/0.5 ML VIAL SQ SCH ×3 (05:50→21:19)
[2020-04-25] MEDS: LEVOTHYROXINE SODIUM 88 MCG TABLET PO SCH (05:50)
[2020-04-25 06:48] LABS: Basophils # (auto) 0.01 K/uL (0-0.2); Basophils % (auto) 0.2 %; Eosinophils # (auto) 0.14 K/uL (0-0.5); Hematocrit (blood only) 26.7 % (37-47); Hemoglobin 9.2 g/dL (12.0-16.0); Immature Granulocytes # (auto) 0.02 K/uL (0.00-0.02); Immature Granulocytes % (auto) 0.4 %; Lymphocytes # (auto) 1.52 K/uL (1.2-3.4); Lymphocytes % (auto) 32.8 %; Mean Corpuscular Hgb Conc 34.5 g/dL (32-36); Mean Corpuscular Volume 84.2 fL (80-100); Mean Platelet Volume 10.1 fL (7.4-10.4); Monocytes # (auto) 0.59 K/uL (0.11-0.59); Monocytes % (auto) 12.7 %; Neutrophils # (auto) 2.36 K/uL (1.4-6.5); Neutrophils % (auto) 50.9 %; Platelet Count 461 K/uL (130-400); RDW Coefficient of Variation 15.1 % (11.5-14.5); RDW Standard Deviation 45.2 fL (36.4-46.3); Red Blood Count 3.17 M/uL (4.2-5.4); White Blood Count 4.64 K/uL (4.8-10.8)
[2020-04-25 07:23] LABS: BUN Creatinine Ratio 11.4 (10-20); Creatinine Clr Calc Pharmacy 104.4 ml/min; Est GFR (African American) 106.8; Est GFR (Non-African American) 92.1; Potassium 3.7 mmol/L (3.5-5.1)
[2020-04-25] MEDS: CHOLECALCIFEROL 1,000 UNITS 25 MCG TAB PO SCH (08:59)
[2020-04-25] MEDS: AMOXICILLIN/CLAVULANATE 875 MG TAB PO SCH ×2 (08:59→17:59)
[2020-04-25] MEDS: GABAPENTIN 600 MG TAB PO SCH ×2 (09:00→21:19)
[2020-04-25] MEDS: lisinopril 40 MG TAB PO SCH (09:01)
[2020-04-25] MEDS: MUPIROCIN 2% OINT 22 GM TUBE EXT SCH ×3 (09:02→21:18)
--- NOTE | 2020-04-25 10:52 | Hospitalist Progress Note ---
Date of Service April 25, 2020 Assessment & Plan (1) Encephalopathy acute: Mame Palacios is a 39 yo female with h/o IV drug abuse and several associated hospitalizations associated with overdose who was admitted to [facility] on 04/16/2020 for sepsis and concern for drug overdose. SIRS - leukocytosis and lactic acidosis in the setting of tachycardia/hypotension initially concerning for sepsis, elevated CRP 2.94 today supports acute inflammation 2/2 this - ID consult 04/19: followed recs to d/c broad-spectrum abx coverage - continue Augmentin for possible sinus infection - see below - patient remains hemodynamically stable/afebrile w/o broad spectrum abx - trend CBC daily Polysubstance abuse - history of of IV fentanyl use, last hospitalized for overdose in 02/2020 - ecchymosis on R & L lateral malleolus consistent with injection site - HIV (1&2) Ab & P24 Antigen, 4th gen test negative; hep B surface antibody immune, hep B surface antigen neg; hep C negative - patient denies past or present SI/intential drug OD - tentative discharge to [facility] (inpatient drug rehab) on 04/26 Acute Rhinosinusitis - patient complains of significant congestion and facial discomfort; face CT showed opacification of several sinuses - suspect acute bacterial rhinosinusitis - continue Augmentin 875/125mg PO BID x7 days (today is 08/26) Shortness of Breath - occasional temporary SOB at night - reports h/o possible PATRICK sx - consider sleep study as outpatient Sinus bradycardia, resolved - denies any lightheadedness, dizziness, confusion; other VS stable/WNL; EKG 04/21 confirming sinus bradycardia w/o abnormalities - HR now >60bpm x3 days - suspect sequelae of methamphetamine withdrawal syndrome Hypothyroidism - continue home dose Synthroid 88mcg DVT prophylaxis: Heparin 5000u SQ q8h Diet: Regular Dispo: med/surg with tele; tentative discharge to [facility] drug rehab on 04/26 Code status: full code (2) Sepsis: (3) ESTEFANY (acute kidney injury): (4) Drug abuse and dependence: (5) Elevated CK: (6) Thrombocytopenia: (7) Transaminitis: (8) DVT prophylaxis: Admission and Anticipated Discharge Date Admission Date: April 16, 2020 Supervising Physician Co-Signing Physician Notes I personally examined the patient and verified all begum points of history and exam, discussed case, and agree with decision making with Dr Meng. No complaints, just wants to shower. Rehab bed was delayed until tomorrow. vitals noted nad heent nc at breathing unlabored skin no pallor no focal neuro deficits polysubstance OD -recovered -for rehab tomorrowhopefully for real this time. Subjective No acute events overnight. Reports good PO intake. Excited to go to inpatient rehab tomorrow. Denies fever/chills, headache, chest pain, SOB, lightheadedness, nausea, vomiting, or abdominal pain. Review of Systems Review of Systems: Pertinent positives and negatives mentioned in HPI. Physical Exam Physical Exam: General: A&Ox4. NAD. Cooperative. HEENT: Mild swelling of left nasal wing without erythema and with mild TTP, improved Pulm: CTAB A&P. -wheezes, -rales, -rhonchi. Symmetrical chest rise. No increase work of breathing. No respiratory distress. Cardiac: RRR, -mrg. Radial pulses intact and symmetrical. Abdominal: soft, non-tender, non-distended, BS x 4 Skin: ecchymoses vs splinter hemorrhages under most fingernails resolving, bilateral ecchymoses near lateral malleoli markedly improved, non-blanching erythematous toes resolving Results & Data Results & Data ([facility]) Vital Signs (Past 12 Hours) Vital Signs Temp Pulse Resp BP Pulse Ox 04/25/20 07:32 36.7 C 79 18 152/96 H 99 04/24/20 23:05 37.1 C 70 19 142/96 H 99 Resident Activity Tracking Resident Involvement: Resident Care Provided Care Provided: Adult Hospital Medicine (1) Sepsis Sepsis acute organ dysfunction status: unspecified Sepsis type: sepsis due to unspecified organism Qualified Code(s): A41.9 - Sepsis, unspecified organism
--- NOTE | 2020-04-25 17:54 | Billing Data ---
Date of Service April 25, 2020 Coding Level of Care Code 51684 Subseq Hosp Care Lvl 1
[2020-04-26] MEDS: IBUPROFEN 200 MG TAB PO PRN ×2 (04:19→12:01)
[2020-04-26 06:32] LABS: Basophils # (auto) 0.02 K/uL (0-0.2); Basophils % (auto) 0.4 %; Eosinophils % (auto) 3.8 %; Hematocrit (blood only) 30.4 % (37-47); Hemoglobin 10.3 g/dL (12.0-16.0); Immature Granulocytes # (auto) 0.02 K/uL (0.00-0.02); Immature Granulocytes % (auto) 0.4 %; Lymphocytes # (auto) 1.74 K/uL (1.2-3.4); Lymphocytes % (auto) 33.4 %; Mean Corpuscular Hgb Conc 33.9 g/dL (32-36); Mean Corpuscular Volume 85.6 fL (80-100); Monocytes # (auto) 0.69 K/uL (0.11-0.59); Monocytes % (auto) 13.2 %; Neutrophils # (auto) 2.54 K/uL (1.4-6.5); Neutrophils % (auto) 48.8 %; Platelet Count 555 K/uL (130-400); RDW Coefficient of Variation 15.2 % (11.5-14.5); RDW Standard Deviation 46.9 fL (36.4-46.3); Red Blood Count 3.55 M/uL (4.2-5.4); White Blood Count 5.21 K/uL (4.8-10.8)
[2020-04-26] MEDS: HEPARIN SOD 5,000 UNIT/0.5 ML VIAL SQ SCH ×2 (07:02→13:33)
[2020-04-26] MEDS: LEVOTHYROXINE SODIUM 88 MCG TABLET PO SCH (07:02)
[2020-04-26 07:28] LABS: BUN Creatinine Ratio 11.8 (10-20); Calcium 9.1 mg/dl (8.5-10.1); Creatinine Clr Calc Pharmacy 95.1 ml/min; Est GFR (African American) 95.3; Est GFR (Non-African American) 82.2; Potassium 4.3 mmol/L (3.5-5.1)
[2020-04-26] MEDS: AMOXICILLIN/CLAVULANATE 875 MG TAB PO SCH (09:14)
[2020-04-26] MEDS: CHOLECALCIFEROL 1,000 UNITS 25 MCG TAB PO SCH (09:14)
[2020-04-26] MEDS: GABAPENTIN 600 MG TAB PO SCH (09:14)
[2020-04-26] MEDS: lisinopril 40 MG TAB PO SCH (09:14)
[2020-04-26] MEDS: MUPIROCIN 2% OINT 22 GM TUBE EXT SCH ×2 (09:15→13:33)
--- NOTE | 2020-04-26 15:05 | Discharge Summary ---
Date of Service April 26, 2020 Admission HPI Per Admitting Provider 39 YOF with history of IV drug use and prescribed narcan as outpatient use. The patient is brought to the ER today by EMS after concern by her mother of taking increase dose of her suboxone ? total amount. Patient was reportedly non-cooperative and disoriented. On evaluation in the ED the patient is disoriented and speech is inappropriate and not accurate. Patient is unaware where she is or how she got here. In the ER patient has received 2liters 0.9% saline, broad spectrum antibiotics, CT scan of head and abdomen, lorazepam and calcium gluconate. Related to pateints mentation and overall ill appearance will admit to telemetry and cover for endocarditis. Admission Exam Per Admitting Provider General: Lethargic Head: Normocephalic, atraumatic ENT: PERRL, EOMI, mucous membranes moist Neuro: AAO x 1(person) speech slurred and inappropriate, strength intact bilaterally 5/5, sensation intact, full ROM of neck, unable to perform coordination as patient can't follow commands. Chest: equal rise and fall of the chest, no accessory muscle use, no heaves or thirlls, scattered crackles in bases on auscultation, on room air, Cardiac: Regular rate and rhythm, telelmetry reviewed, skin warm dry, cap refill <3 seconds, peripheral pusles +2 no JVD, no murmur, GI: NABS x 4 quadrants, soft, nontender to palpation, no rebound, guarding or tenderness : Spontaneously voiding, no pain, no CVA tenderness, Extremities: echymostic areas with surrounding areas of purpura to lower extremities, no painful lesions, rubor color to bialteral hands and arms. brusing and swelling noted to lateral left malleolus. Psych: Normal mood and affect cits Skin: no rash or erythema Principal Diagnosis Drug Overdose Discharge Exam General: A&Ox4. NAD. Cooperative. HEENT: Mild swelling of left nasal wing without erythema and with mild TTP, improved Pulm: CTAB A&P. -wheezes, -rales, -rhonchi. Symmetrical chest rise. No increase work of breathing. No respiratory distress. Cardiac: RRR, -mrg. Radial pulses intact and symmetrical. Abdominal: soft, non-tender, non-distended, BS x 4 Skin:bilateral ecchymoses near lateral malleoli markedly improved Discharge Data Allergies Allergy/AdvReac Type Severity Reaction Status Date / Time No Known Allergies Allergy Unknown Verified 03/17/20 12:54 Consultations 04/16/20 20:29 ED Decision to Admit Stat 04/16/20 23:37 Consult Behavioral Health Liaison Routine 04/17/20 10:19 Consult Psychiatry Routine 04/19/20 11:32 Consult Infectious Diseases Routine 04/21/20 13:40 Consult Case Management - Discharge Planning Routine Ordered Studies 04/16/20 18:49 CT head/brain wo con Stat 04/16/20 19:35 CT abd pelvis wo con Stat 04/18/20 10:03 CT facial bones wo con Urgent 04/18/20 13:30 US venous doppler LE BI Stat 04/18/20 14:00 US ankle/brachial index comp Stat Hospital Course (1) Encephalopathy acute: Mame Palacios is a 39 yo female with h/o IV drug abuse and several associated hospitalizations associated with overdose who was admitted to [facility] on 04/16/2020 for sepsis and concern for drug overdose. SIRS - leukocytosis and lactic acidosis in the setting of tachycardia/hypotension initially concerning for sepsis, elevated CRP 2.94 today supports acute inflammation 2/2 this - ID consult 04/19: followed recs to d/c broad-spectrum abx coverage - patient remained hemodynamically stable/afebrile w/o broad spectrum abx Polysubstance abuse - history of of IV fentanyl use, last hospitalized for overdose in 02/2020 - ecchymosis on R & L lateral malleolus consistent with injection site - HIV (1&2) Ab & P24 Antigen, 4th gen test negative; hep B surface antibody immune, hep B surface antigen neg; hep C negative - inpatient rehab after discharge Acute Rhinosinusitis, resolved - treated with Augmentin BID x7 days, symptoms resolved Shortness of Breath - occasional temporary SOB at night - reports h/o possible PATRICK sx - consider sleep study as outpatient Hypothyroidism - continue home dose Synthroid 88mcg (2) Sepsis: (3) ESTEFANY (acute kidney injury): (4) Drug abuse and dependence: (5) Elevated CK: (6) Thrombocytopenia: (7) Transaminitis: (8) DVT prophylaxis: Total Time Total Time Spent Total Time Spent (In Minutes): Less than 30 minutes Total Time Includes: Examination of the Patient, Discharge Planning and Medication Reconciliation Discharge Plan Discharge Items Patient Disposition: Home - Self-Care Reason For Visit: OVERDOSE VERSUS INFECTION Discharge Diagnosis: Drug Overdose Activity: Per Instructions section Non-emergency contact: Primary Care Provider Call non-emergency contact if: you have any medication questions, your symptoms worsen and you have a fever Follow-up/Referrals: Rj Meng MD [Resident] - 05/08/20 8:50 am (If you need to change this appointment, please call [phone].) PCP,NO [Primary Care Provider] - Diet: Regular Addtl Attending Provider Instructions: You were admitted to [facility] on 04/16/2020 due to drug overdose - suspected to be due to methamphetamine. Initially, your high heart rate, low blood pressure, and extensive blood work showed possible infection. You were started on strong IV antibiotics for a presumed infection, and you underwent an extensive imaging evaluation as well as further laboratory work-up to determine the cause of infection. Thankfully, all of your blood work improved, your blood did not show signs of bacteria, and the imaging that was done did not show a source of infection. Our infectious disease doctors were consulted, and they determined that your initial symptoms were most likely due to methamphetamine use - your strong IV antibiotics were stopped and you were started on an oral antibiotic called Augmentin to treat the skin infection in your nose. You did very well during this hospitalization, and you will be stopped on all antibiotics as of 04/26/2020. Given that you were interested in going to inpatient drug rehab, and we felt that it would be great for you and your health, we tried to connect you with a rehab center. Unfortunately, this was not able to be arranged, so you will be discharged in good, stable condition on 04/26/2020. You should follow up closely with Dr. Meng, as he can help to facilitate acceptance to a drug rehab program. You should continue to take all of your regular home medications as scheduled. Your motivation to stop using drugs is inspirational, and we hope that you have the greatest success in abstinence. We hope you continue to feel well, and it was a pleasure to help provide your care while you were hospitalized. Pending Studies at Discharge: No Stand-Alone Forms: My [facility] [employer], Smoking Cessation Medications and DC Order Prescriptions: Continued gabapentin 600 mg Tablet 600 mg PO BID PRN (Reason: unknown) RF: 0 trazodone 100 mg Tablet 100 mg PO HS PRN (Reason: Sleep) RF: 0 lisinopril 40 mg Tablet 40 mg PO QAM RF: 0 Narcan 4 mg/actuation spray,non-aerosol 1 spray intranasal ONCE Qty: 2 RF: 0 buprenorphine-naloxone 8-2 mg Tablet, Sublingual 1 tab SUBLINGUAL DAILY RF: 0 bupropion HCl [Wellbutrin XL] 300 mg Tablet Extended Release 24 Hr 300 mg PO DAILY RF: 0 topiramate [Topamax] 50 mg Tablet 50 mg PO HS PRN (Reason: Unknown) RF: 0 topiramate [Topamax] 100 mg Tablet 100 mg PO BID PRN (Reason: Unknown) RF: 0 atomoxetine 80 mg Capsule 80 mg PO DAILY PRN (Reason: Unknown) RF: 0 ibuprofen 600 mg Tablet 600 mg PO Q6H PRN (Reason: Pain) RF: 0 levothyroxine 88 mcg Tablet 88 mcg PO DAILY RF: 0 Discharge Orders: Discharge Order (Routine); Ordered 04/26/20 Ordered By: Rj Meng Admission Data Admit Date/Time: 04/16/20 21:22 Attending Provider: Renato Wilcox Admit Provider: Darin Albarran Primary Care Provider: PCP,NO Other Providers: Roe Sims ; Jose Carlson ; Darin Albarran ; Cindi Alvarez ; Yobani Matute ; Ricardo Flores ; Alonso Bautista I. ; Law Westbrook II ; Jessica Burt ; Hosea Cook Other Interventions: Discharge Summary Assessment (RN) Last Done: 04/26/20 15:17 Supervising Physician Co-Signing Physician Notes I personally examined the patient and verified all begum points of history and exam, discussed case, and agree with decision making with Dr Meng. Still waiting on rehab bedin [facility]. Fortunately case management was able to set things up with [facility]. It sounds like they will be able to take her tomorrow. In the meantime the patient was able to set up a safe discharge plan for home. vitals noted nad heent nc at breathing unlabored skin no pallor no focal neuro deficits polysubstance OD -recovered -for rehabbut at this point time she has a safe discharge plan with supervision, so it is safe for her to go home and go to rehab tomorrow as an outpatient. Resident Activity Tracking Resident Involvement: Resident Care Provided Care Provided: Adult Hospital Medicine
--- NOTE | 2020-04-26 15:42 | Billing Data ---
Date of Service April 26, 2020 Coding Level of Care Code D/C Day Management <30 mins
== END 2020-04-26 16:20 | disposition home or self-care (01) | DRG 871 ==
LOC: ED 18:36 → 2N 21:22 → SUATTDRO 21:22 → 2N 22:15